=== PATIENT | female | born 1955 | race Caucasian/White ===

== ENCOUNTER 2016-07-03 06:44 | Inpatient (IN) | payer BC ==
[~2016-07-03] VITALS: Ht 175.3 cm; Wt 102.8 kg
[~2016-07-03 06:44] MED LIST: DILT180C96 PO; FRS/40 PO; GLC500 PO; LISI-725 PO; POTA10CA28 PO; SOTA120T6 PO; vitamin d3 liquid PO
[2016-07-03] MEDS ORDERED: DILTIAZEM HCL 5 MG/ML 5 ML VIAL IV STA (07:07)
--- NOTE | 2016-07-03 07:12 | EMERGENCY ROOM VISIT NOTE ---
History Report prepared by Mariposa: Dario Mckay Under the Supervision of: Dr. Carrillo Chambers M.D. First contact with patient: 06:56 Chief Complaint: RAPID HEART RATE Stated Complaint: AFIB SINCE AROUND 4AM History of Present Illness The patient is a 61 year old female who presents to the Emergency Room with complaints of a persistent rapid heart rate since 0. The patient noticed the sensation when she got up to go to the bathroom. The patient has felt weak since the onset of her rapid heart rate. The patient had a similar sensation several years ago when she was diagnosed with atrial fibrillation. The patient was electrically cardioverted, and has since been in sinus rhythm. The patient is recovering from an illness with symptoms of fever, chills, and cough. She had similar symptoms prior to her first diagnosis of atrial fibrillation several years ago. The patient has been compliant with her prescriptions for Diltiazem 120 mg, Lisinopril 20 mg, and Sotalol 120 mg. Her medications have not changed recently other than the addition of Insulin. Source of History: patient Onset: 399 Position: other (heart) Quality: other (rapid rate) Timing: other (persistent) Associated Symptoms: + weakness Review of Systems All systems have been listed, reviewed, and are negative other than those previously mentioned. Please see Additional Medical History Sheet. 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 Family History Hypertension Social History Smoking Status: Former Smoker Alcohol Use: occasionally Drug Use: none Marital Status: Housing Status: lives with family Occupation Status: retired Current/Historical Medications Scheduled Ascorbic Acid (Vitamin C), 1,000 MG PO DAILY Diltiazem Hcl Ext Rel (Tiazac), 120 MG PO DAILY Fish Oil ([place]-3), 1 CAP PO DAILY Insulin Detemir (Levemir), 24-26 UNITS SQ HS Kelp (Kelp), 100 MG PO BID Lisinopril (Zestril), 20 MG PO DAILY Metformin HCL (Glucophage *), 1,000 MG PO BID Probiotic Product (Probiotic), 1 CAP PO DAILY Sotalol Hcl (Afib/Afl) (Sotalol Hcl (Af)), 120 MG PO BID Zinc Gluconate (Zinc Gluconate), 100 MG PO DAILY [vitamin d3 liquid], 10,000 UNIT(INT) PO DAILY Scheduled PRN Furosemide (Lasix), 40 MG PO 2XWK PRN for . Insulin Lispro 75/25 (Humalog Mix 75/25), 5-10 UNITS SC DAILY PRN for with meals Lorazepam (Ativan), 1 MG PO TID PRN for Anxiety/Agitation Potassium Chloride (Micro-K Ext Rel), 20 MEQ PO 2XWK PRN for . Miscellaneous Medications Magnesium Oxide (Mag-Ox), 400 MG PO Allergies Coded Allergies: Labetalol (Verified Allergy, Unknown, ., 05/13/16) Nitrofurantoin (Verified Allergy, Unknown, PER DR BAY, 05/13/16) Grain (Verified Adverse Reaction, Unknown, elevates her blood sugar and makes her depressed, 05/13/16) Wheat (Verified Adverse Reaction, Unknown, eleavtes blood sugar and makes her depressed, 05/13/16) Physical Exam Vital Signs Date Time Temp Pulse Resp B/P Pulse Ox O2 Delivery O2 Flow Rate FiO2 07/03/16 11:09 90 18 158/74 95 Room Air 07/03/16 09:00 101 20 114/96 94 Room Air 07/03/16 08:30 109 20 107/78 92 Room Air 07/03/16 07:33 117 20 115/84 92 Room Air 07/03/16 07:23 124 07/03/16 06:50 100 Room Air 07/03/16 06:45 36.6 94 20 184/91 95 Room Air Physical Exam GENERAL: Patient awake, alert, oriented x 3. Patient follows commands. Patient does not appear toxic. Patient is adequately hydrated and well- nourished. SKIN: No erythema, pallor, cyanosis or rash HEENT: Normal head, pupils equal, reactive to light and accommodation. LUNGS: Occasional faint wheezes noted, right greater than left. HEART: Rapid, irregularly irregular rhythm. No murmurs. No gallops. No rubs ABDOMEN: No masses, no rebound, no hepatomegaly or splenomegaly. Obese. EXTREMITIES: No signs of trauma. No pedal or pretibial edema. No calf or thigh tenderness. NEUROLOGIC: Cranial nerves II-XII within normal limits. No gross motor sensory function deficits. Medical Decision & Procedures ER Provider Diagnostic Interpretation: X ray results are stated below per my interpretation and the radiologist's interpretation. CHEST ONE VIEW PORTABLE CLINICAL HISTORY: Atrial fibrillation. COMPARISON STUDY: Chest radiograph June 27, 2013. FINDINGS: Lung volumes are normal. There is no pneumothorax or pleural effusion. Mild cardiomegaly is unchanged. There is no evidence of pulmonary edema. No consolidation is identified. IMPRESSION: 1. No acute cardiopulmonary findings. 2. Stable mild cardiomegaly. Electronically signed by: Ayden Duke M.D. 07/03/2016 8:08 AM Dictated Date/Time: 07/03/2016 8:07 AM Laboratory Results 07/03/16 07:02 07/03/16 07:02 Test 07/03/16 07:02 Red Blood Count 4.64 M/uL (4.2-5.4) Mean Corpuscular Volume 87.3 fL (80-100) Mean Corpuscular Hemoglobin 31.3 pg (25-34) Mean Corpuscular Hemoglobin Concent 35.8 g/dl (32-36) RDW Standard Deviation 42.5 fL (36.4-46.3) RDW Coefficient of Variation 13.3 % (11.5-14.5) Mean Platelet Volume 9.2 fL (7.4-10.4) Prothrombin Time 9.8 SECONDS (9.0-12.0) Prothromb Time International Ratio 0.9 (0.9-1.1) Activated Partial Thromboplast Time 26.8 SECONDS (21.0-31.0) Partial Thromboplastin Ratio 1.0 Anion Gap 15.0 mmol/L (3-11) Est Creatinine Clear Calc Drug Dose 105.2 ml/min Estimated GFR () 90.1 Estimated GFR (Non- 77.8 BUN/Creatinine Ratio 16.0 (10-20) Calcium Level 10.2 mg/dl (8.5-10.1) Total Bilirubin 0.5 mg/dl (0.2-1) Aspartate Amino Transf (AST/SGOT) 20 U/L (15-37) Alanine Aminotransferase (ALT/SGPT) 24 U/L (12-78) Alkaline Phosphatase 97 U/L (45-117) Troponin I < 0.015 ng/ml (0-0.045) Total Protein 7.5 gm/dl (6.4-8.2) Albumin 3.6 gm/dl (3.4-5.0) Globulin 3.9 gm/dl (2.5-4.0) Albumin/Globulin Ratio 0.9 (0.9-2) Thyroid Stimulating Hormone (TSH) 2.710 uIu/ml (0.300-4.500) Laboratory results as stated above per my review. Medications Administered Medications (Trade) Dose Ordered Sig/Lisa Route Start Time Stop Time Status Last Admin Dose Admin Diltiazem HCl (Cardizem Inj) 20 mg NOW STAT IV 07/03/16 07:07 07/03/16 07:11 DC 07/03/16 07:25 20 MG Diltiazem HCl (Cardizem Bolus / Drip) 1 ea NOW STAT IV 07/03/16 07:50 07/03/16 07:51 DC 07/03/16 08:25 1 EA ECG Indication: tachycardia Rate (beats per minute): 99 Rhythm: atrial fibrillation Findings: PVC (occasional), no acute ischemic change ED Course 0657: Past medical records reviewed. The patient was evaluated in room A3. A complete history and physical examination was performed. 0707: Cardizem 20 mg IV. 0750: Diltiazem Bolus/drip 1 ea IV. 0935: The patient's heart rate decreased considerably, but she remains in atrial fibrillation. 0954: Discussed the case with Dr. Umang Kumar, Community Arts Worker. He will see the patient in the ED. 1025: Dr. Kumar was in to see the patient. He recommends that medicine admit her to the hospital. 1033: Spoke with Janice Vargas PA-C, [facility] Hospitalist. The patient will be evaluated. Medical Decision I considered multiple diagnoses including atrial fibrillation, metabolic disorder, acute ischemia, pneumonia, bronchitis, URI. Patient is here now with atrial fibrillation with rapid ventricular response. Patient is on multiple medications. Multiple labs, EKG and imaging were obtained. Please see above. The patient was given high-dose diltiazem bolus 2 and then a diltiazem drip. This resulted in a slowing of her rate but without conversion to sinus rhythm. I discussed results with the patient and with Dr. Kumar. I also discussed care with the hospitalist. The patient may require cardioversion. In the meantime, the patient will require further evaluation in the hospital with close monitoring. Consults Time Called: 0950 Consulting Physician: Dr. Umang Kumar, Community Arts Worker Returned Call: [phone]: Discussed the case with Dr. Umang Kumar, Community Arts Worker. He will see the patient in the ED. Additional Consults: Time Called: 1030 Consulted Physician: Janice Vargas PA-C, [facility] Hospitalist Returned Call: [phone] Additional Comments: 1033: Spoke with Janice Vargas PA-C, [facility] Hospitalist. The patient will be evaluated. Impression Primary Impression: Atrial fibrillation with RVR Additional Impression: Bronchitis Critical Care I have personally spent greater than 35 minutes of critical care time in the direct management of this patient. This includes bedside care, interpretation of diagnostic studies, and testing, discussion with consultants, patient, and family members, and other required patient management activities. This 35 minutes is in excess of all separately billable procedures. Scribe Attestation The scribe's documentation has been prepared under my direction and personally reviewed by me in its entirety. I confirm that the note above accurately reflects all work, treatment, procedures, and medical decision making performed by me. Departure Information Dispostion Being Evaluated By Hospitalist Referrals Teodoro Haile MD (PCP) Patient Instructions A Signature Page, [facility] Problem Qualifiers
[2016-07-03 07:13] LABS: HEMATOCRIT 40.5 % (37-47); MEAN CELL VOLUME 87.3 fL (80-100); MEAN CORPUSCULAR HEMOGLOBIN 31.3 pg (25-34); MEAN CORPUSCULAR HGB CONC 35.8 g/dl (32-36); MEAN PLATELET VOLUME 9.2 fL (7.4-10.4); PLATELET COUNT 205 K/uL (130-400); RED BLOOD COUNT 4.64 M/uL (4.2-5.4)
[2016-07-03 07:24] LABS: INR 0.9 (0.9-1.1); PROTHROMBIN TIME (PATIENT) 9.8 SECONDS (9.0-12.0)
[2016-07-03 07:29] LABS: AST/SGOT 20 U/L (15-37); BLOOD UREA NITROGEN 13 mg/dl (7-18); CALCIUM 10.2 mg/dl (8.5-10.1); CARBON DIOXIDE 22 mmol/L (21-32); CHLORIDE 102 mmol/L (98-107); CREATININE 0.82 mg/dl (0.60-1.20); GLUCOSE 277 mg/dl (70-99); SODIUM 139 mmol/L (136-145)
[2016-07-03 07:39] LABS: ALB/GLOB RATIO 0.9 (0.9-2); ALKALINE PHOSPHATASE 97 U/L (45-117); ALT/SGPT 24 U/L (12-78)
[2016-07-03] MEDS ORDERED: DILTIAZEM BOLUS / DRIP IV STA ×2 (07:50→11:18)
[2016-07-03] MEDS ORDERED: HMLI7525 SC (07:57)
[2016-07-03] MEDS ORDERED: MAGN400T6 PO (07:57)
[2016-07-03] MEDS ORDERED: LVMI SQ (07:57)
[2016-07-03] MEDS ORDERED: LORA-741 PO ×2 (07:57)
[2016-07-03] MEDS ORDERED: DILT120C68 PO (07:57)
[2016-07-03] MEDS ORDERED: DILTIAZEM HCL INJ 125 MG in DEXTROSE 5% 100ML IV PRN (08:00)
--- NOTE | 2016-07-03 08:10 | DIAGNOSTIC IMAGING REPORT ---
CHEST ONE VIEW PORTABLE CLINICAL HISTORY: Atrial fibrillation. COMPARISON STUDY: Chest radiograph June 27, 2013. FINDINGS: Lung volumes are normal. There is no pneumothorax or pleural effusion. Mild cardiomegaly is unchanged. There is no evidence of pulmonary edema. No consolidation is identified. IMPRESSION: 1. No acute cardiopulmonary findings. 2. Stable mild cardiomegaly. Electronically signed by: Ayden Duke M.D. 07/03/2016 8:08 AM Dictated Date/Time: 07/03/2016 8:07 AM
--- NOTE | 2016-07-03 10:59 | CARDIOLOGY CONSULTATION ---
DATE OF CONSULTATION: 07/03/2016 REFERRING PHYSICIAN: [facility] tresa. REASON FOR CONSULTATION: Atrial fibrillation. HISTORY OF PRESENT ILLNESS: This is a 61-year-old female who is usually followed by Dr. Robbie Canela through the [facility]. The patient has a history of paroxysmal atrial fibrillation, but has been in a sinus rhythm for over 2 years. She takes diltiazem and sotalol. Her had problems while on Coumadin and she has refused any type of anticoagulation. She was in her normal state of health until the past several days, she has had a cold. She has had a cough with chills and symptoms of viremia. This morning about 4:00 a.m., she noted her heart to be in atrial fibrillation with a rapid heart rate. She presented to the Emergency Department where she was given intravenous diltiazem, which has slowed her heart rate down, but she is in persistent atrial fibrillation. She has no chest pain or shortness of breath. She denies dizziness or lightheadedness. ALLERGIES: LABETALOL, MACROBID, AND WHEAT. PAST MEDICAL HISTORY: As outlined above, the patient has a history of paroxysmal atrial fibrillation. She is also a type 2 diabetic with a history of obesity, hypertension, hyperlipidemia and asthmatic lung disease. SOCIAL HISTORY: She is a nonsmoker. She is a . FAMILY MEDICAL HISTORY: Noncontributory. REVIEW OF SYSTEMS: A 10-point review of systems is negative except for the history of chief complaint. PHYSICAL EXAMINATION: GENERAL: She is alert and oriented, no acute distress. VITAL SIGNS: Blood pressure is 115/100 and pulse is regular at 100. She is afebrile. HEENT: She is normocephalic. Pupils are equal and reactive to light. Extraocular muscles are intact bilaterally. NECK: The neck veins are flat. Carotids have good upstrokes bilaterally without bruits. Thyroid is nonpalpable. RESPIRATORY: Breath sounds equal bilaterally and clear to auscultation. CARDIOVASCULAR: Heart has an irregular rhythm. There are no cardiac rubs or murmurs. GASTROINTESTINAL: Abdomen is soft and nontender without organomegaly. EXTREMITIES: Free of edema, digit clubbing, or cyanosis. NEUROLOGIC: Grossly intact. SKIN: Warm to touch. LYMPH NODES: Negative to palpation. LABORATORY DATA: INR is 0.9. Creatinine is 0.8 and potassium is 4.0. Hemoglobin is 14.5. EKG reveals atrial fibrillation without acute changes that would suggest ischemia. IMPRESSION: 1. Persistent atrial fibrillation. 2. Type 2 diabetes. 3. History of hypertension and dyslipidemia. 4. Obesity. RECOMMENDATIONS: The patient will remain on a diltiazem drip for rate control. She is very reluctant regarding anticoagulation; however, I have discussed the option of short term until we are able to cardiovert her back to normal sinus rhythm. We will start her on intravenous heparin. I would continue the sotalol. If she does not spontaneously convert to normal sinus rhythm, then we may have to do an early cardioversion utilizing a JASMIN to clear her. MERRICK
[2016-07-03 11:15] VITALS: O2SAT 95; BMI 42.0
[2016-07-03] MEDS ORDERED: ONDANSETRON INJ 2 MG/ML 2 ML VIAL IV PRN (11:15)
[2016-07-03] MEDS ORDERED: ACETAMINOPHEN 325 MG TAB PO PRN (11:15)
[2016-07-03] MEDS ORDERED: NITROGLYCERIN 0.4 MG SL PER TAB CHARGE SL PRN (11:15)
[2016-07-03] MEDS ORDERED: ASCO10003 PO (11:29)
[2016-07-03] MEDS ORDERED: MISCCAP80 PO (11:29)
[2016-07-03] MEDS ORDERED: OMEG10007 PO (11:29)
[2016-07-03] MEDS ORDERED: ATV/1 PO (11:29)
[2016-07-03] MEDS ORDERED: ZINC100T3 PO (11:29)
[2016-07-03] MEDS ORDERED: KELP100T PO (11:29)
[2016-07-03] MEDS ORDERED: POTASSIUM CHLORIDE 10 MEQ TABCR PO PRN (11:30)
[2016-07-03] MEDS ORDERED: GLUCOSE 40% GEL 15 GM TUBE PO PRN (11:30)
[2016-07-03] MEDS ORDERED: GLUCOSE 10 TABS/TUBE PO PRN (11:30)
[2016-07-03] MEDS ORDERED: GLUCAGON FOR INJ 1 MG VIAL SQ PRN (11:30)
[2016-07-03] MEDS ORDERED: DEXTROSE 50% 50 ML SYR IV PRN (11:30)
[2016-07-03] MEDS ORDERED: FUROSEMIDE 40 MG TAB PO PRN (11:30)
[2016-07-03] MEDS ORDERED: HEPARIN SOD 5000 UNIT/0.5 ML CARP ONE (11:41)
[2016-07-03] MEDS ORDERED: HEPARIN 25000 UNIT/500 ML D5W ONE ×2 (11:41→11:47)
[2016-07-03 12:41] VITALS: BP 134/84; PULSE 116; O2SAT 96
[2016-07-03] MEDS: DILTIAZEM HCL INJ 125 MG in DEXTROSE 5% 100ML IV PRN ×2 (12:52→23:04)
[2016-07-03] MEDS: HEPARIN 25,000 UNIT/500ML D5W 500 ML IV PRN ×2 (12:54→20:45)
[2016-07-03 12:55] VITALS: BP 145/72; PULSE 107; O2SAT 96
[2016-07-03] MEDS: INSULIN ASPART 100 UNITS/ML 3 ML PEN SC SCH ×3 (13:04→20:30)
[2016-07-03 13:07] VITALS: BP 138/81; PULSE 121
--- NOTE | 2016-07-03 13:46 | History and Physical ---
History & Physical Date & Time of Service: Jul 03, 2016 at 13:24 Chief Complaint: atrial fibrillation with rvr Primary Care Physician: Teodoro Haile MD History of Present Illness Source: patient This is a 61 y/o female with PMHx of PAF not on anticoagulation, DM 2, Diastolic CHF on lasix PRN, HTN and other problems as outlined below who presents to the ED c/o persistent rapid heart rate since early this morning. Pt reports that when she woke up around 0400 to use the bathroom she noticed a rapid heart rate ~110. Sxs were assoc with mild lightheadedness. Patient has a history of PAF and feels that these sxs reflect those she feels when she goes into Afib. She reports she has never spontaneously converted to sinus rhythm and has required 2 cardioversions (2006 and 2013). She is currently on diltiazem and Sotalol and has been taking her medication as prescribed. She has not been on anticoagulation for the past 2 years. She follows with cardiology, Dr. Canela. Patient is recovering from bronchitis. Pt denies fever/chills, chest pain, syncope, SOB, abd pain, N/V, bowel or bladder issues, LE edema or calf pain. In the ED, pt is tachy in 115-125. EKG + Afib with RVR. Pt received diltiazem bolus followed by a drip. She remained in Afib and will be admitted for further evaluation and treatment. Past Medical/Surgical History Medical Problems: (1) AF (atrial fibrillation) Status: Resolved (2) Anxiety Status: Chronic (3) Benign hypertension Status: Chronic (4) Diabetes mellitus type 2 Status: Chronic (5) Diastolic heart failure Status: Chronic (6) Dyslipidemia Status: Chronic (7) ESOPHAGUS DISORDERS NEC Status: Chronic (8) Iron deficiency anemia Status: Resolved Family History Hypertension Social History Smoking Status: Former Smoker (7 pack year history; quit 2011) Alcohol Use: occasionally Drug Use: none Marital Status: Housing status: lives alone Occupational Status: retired Immunizations History of Influenza Vaccine: No History of Tetanus Vaccine?: unsure History of Pneumococcal: refuses History of Hepatitis B Vaccine: No Multi-Drug Resistant Organisms History of MDRO: No Allergies Coded Allergies: Labetalol (Verified Allergy, Unknown, ., 05/13/16) Nitrofurantoin (Verified Allergy, Unknown, PER DR BAY, 05/13/16) Grain (Verified Adverse Reaction, Unknown, elevates her blood sugar and makes her depressed, 05/13/16) Wheat (Verified Adverse Reaction, Unknown, eleavtes blood sugar and makes her depressed, 05/13/16) Home Medications Scheduled Ascorbic Acid (Vitamin C), 1,000 MG PO DAILY Diltiazem Hcl Ext Rel (Tiazac), 120 MG PO DAILY Fish Oil ([place]-3), 1 CAP PO DAILY Insulin Detemir (Levemir), 24-26 UNITS SQ HS Kelp (Kelp), 100 MG PO BID Lisinopril (Zestril), 20 MG PO DAILY Metformin HCL (Glucophage *), 1,000 MG PO BID Probiotic Product (Probiotic), 1 CAP PO DAILY Sotalol Hcl (Afib/Afl) (Sotalol Hcl (Af)), 120 MG PO BID Zinc Gluconate (Zinc Gluconate), 100 MG PO DAILY [vitamin d3 liquid], 10,000 UNIT(INT) PO DAILY Scheduled PRN Furosemide (Lasix), 40 MG PO 2XWK PRN for . Insulin Lispro 75/25 (Humalog Mix 75/25), 5-10 UNITS SC DAILY PRN for with meals Lorazepam (Ativan), 1 MG PO TID PRN for Anxiety/Agitation Potassium Chloride (Micro-K Ext Rel), 20 MEQ PO 2XWK PRN for . Miscellaneous Medications Magnesium Oxide (Mag-Ox), 400 MG PO Review of Systems Constitutional: + weakness, No chills, No fatigue, No fever, No sweats Eyes: No worsening of vision Respiratory: No cough, No shortness of breath, No sputum Cardiovascular: + palpitations, No chest pain, No claudication, No edema Abdomen: No GI bleeding, No constipation, No diarrhea, No nausea, No pain, No vomiting Musculoskeletal: No calf pain, No swelling Genitourinary - Female: No dysuria Neurologic: No weakness Psychiatric: No depression symptoms Endocrine: No fatigue Hematologic / Lymphatic: No abnormal bleeding/bruising Integumentary: No new/changing skin lesions Physical Exam Vital Signs Date Time Temp Pulse Resp B/P Pulse Ox O2 Delivery O2 Flow Rate FiO2 07/03/16 13:07 121 16 138/81 Room Air 07/03/16 12:55 107 16 145/72 96 Room Air 07/03/16 12:41 116 16 134/84 96 Room Air 07/03/16 12:16 94 20 109/96 92 07/03/16 12:00 94 20 109/96 92 Room Air 07/03/16 11:15 95 Room Air 07/03/16 11:09 90 18 158/74 95 Room Air 07/03/16 09:00 101 20 114/96 94 Room Air 07/03/16 08:30 109 20 107/78 92 Room Air 07/03/16 07:33 117 20 115/84 92 Room Air 07/03/16 07:23 124 07/03/16 06:50 100 Room Air 07/03/16 06:45 36.6 94 20 184/91 95 Room Air General Appearance: WD/WN, no apparent distress, + obese, + pertinent finding ( Pt is laying comfortably in bed ) Head: normocephalic, atraumatic Eyes: normal inspection ENT: hearing grossly normal Neck: supple Respiratory/Chest: chest non-tender, lungs clear, normal breath sounds, no respiratory distress Cardiovascular: no edema, no murmur, + tachycardia, + irregularly irregular Abdomen/GI: normal bowel sounds, non tender, soft Back: normal inspection Extremities/Musculoskelatal: normal inspection, no calf tenderness, no pedal edema Neurologic/Psych: alert, normal mood/affect, oriented x 3 Skin: normal color, warm/dry Diagnostics Laboratory Results Results Past 24 Hours Test 07/03/16 07:02 Range/Units White Blood Count 7.10 4.8-10.8 K/uL Red Blood Count 4.64 4.2-5.4 M/uL Hemoglobin 14.5 12.0-16.0 g/dL Hematocrit 40.5 37-47 % Mean Corpuscular Volume 87.3 80-100 fL Mean Corpuscular Hemoglobin 31.3 25-34 pg Mean Corpuscular Hemoglobin Concent 35.8 32-36 g/dl RDW Standard Deviation 42.5 36.4-46.3 fL RDW Coefficient of Variation 13.3 11.5-14.5 % Platelet Count 205 130-400 K/uL Mean Platelet Volume 9.2 7.4-10.4 fL Prothrombin Time 9.8 9.0-12.0 SECONDS Prothromb Time International Ratio 0.9 0.9-1.1 Activated Partial Thromboplast Time 26.8 21.0-31.0 SECONDS Partial Thromboplastin Ratio 1.0 Sodium Level 139 136-145 mmol/L Potassium Level 4.0 3.5-5.1 mmol/L Chloride Level 102 98-107 mmol/L Carbon Dioxide Level 22 21-32 mmol/L Anion Gap 15.0 3-11 mmol/L Blood Urea Nitrogen 13 7-18 mg/dl Creatinine 0.82 0.60-1.20 mg/dl Est Creatinine Clear Calc Drug Dose 105.2 ml/min Estimated GFR () 90.1 Estimated GFR (Non- 77.8 BUN/Creatinine Ratio 16.0 10-20 Random Glucose 277 70-99 mg/dl Calcium Level 10.2 8.5-10.1 mg/dl Total Bilirubin 0.5 0.2-1 mg/dl Aspartate Amino Transf (AST/SGOT) 20 15-37 U/L Alanine Aminotransferase (ALT/SGPT) 24 12-78 U/L Alkaline Phosphatase 97 45-117 U/L Troponin I < 0.015 0-0.045 ng/ml Total Protein 7.5 6.4-8.2 gm/dl Albumin 3.6 3.4-5.0 gm/dl Globulin 3.9 2.5-4.0 gm/dl Albumin/Globulin Ratio 0.9 0.9-2 Thyroid Stimulating Hormone (TSH) 2.710 0.300-4.500 uIu/ml Diagnostic Radiology CXR IMPRESSION: 1. No acute cardiopulmonary findings. 2. Stable mild cardiomegaly. Impression Assessment and Plan AFIB WITH RVR pt presents with palpitations assoc with lightheadedness; prior h/o Afib on sotalol and diltiazem; not on anticoagulation -admit to telemetry -pt with history of PAF; episode may have been triggered by recent URI illness -EKG: Afib with RVR -TSH WNL -cont sotalol and diltiazem drip -start heparin drip and Coumadin -obtain echo -patient may require cardioversion -consult cardio, Dr. Kumar-appreciate input -monitor UNCONTROLLED DM 2 ON INSULIN -recent HgB A1C 11.3; repeat in AM -hold Metformin and Humalog -reduce Levemir to 12 units HS while in hospital -start ISS -monitor BSG AC HS DIASTOLIC CHF -patient does not appear fluid overloaded -CXR no effusions -echo 2013 normal structure and function -cont BB and Lasix PRN HTN -BP stable -cont lisinopril and sotalol -monitor DVT PROPHYLAXIS -heparin drip CODE STATUS -FULL CODE status per discussion with patient upon admission DISPO -Pt seen in collaboration with Dr. Weiss. Please see his addendum for further details. Thanks! -Of note: patient will be followed by Dr. Parks starting tomorrow AM. ATTENDING NOTE Patient seen & examined at bedside. Reviewed above History/Physical and confirmed all the findings in person. Patient started to experience palpitations and light-headedness earlier in the morning today. Found to to be A.Fib with RVR in ED. Has been given Cardizem bolus and started on Cardizem drip. Started I/V Heparin. Dr. Kumar has been involved in patient care. Continue Sotalol. may need cardioversion. Patient is being admitted to Telemetry. Patient is FULL CODE. DVT Prophylaxis with I/V Heparin. Patient will be followed by Dr. Parks in AM. Luke Weiss MD Level of Care Telemetry Advanced Directives Existing Advance Directive: No Existing Living Will: No Existing Power of [employer] Hcm Developer: No Resuscitation Status FULL RESUSCITATION VTE Prophylaxis VTE Risk Assessment Done? Y/N: Yes Risk Level: High Given or contraindicated: Unfractionated heparin SQ
[2016-07-03 16:18] VITALS: BP 135/73; PULSE 108; TEMP 36.7; O2SAT 93
[2016-07-03] MEDS: WARFARIN SOD 10 MG TAB PO SCH (17:08)
[2016-07-03 19:36] LABS: PARTIAL THROMBOPLASTIN RATIO 1.9
[2016-07-03 19:48] VITALS: BP 133/94; PULSE 105; TEMP 36.5; O2SAT 95
--- NOTE | 2016-07-03 19:54 | ECHOCARDIOGRAM REPORT ---
*NOTICE TO RECEIVING [employer] AGENCY This information is strictly Confidential and protected under [place] law. [place] law prohibits you from making any further disclosure of this information unless further disclosure is expressly permitted by the written consent of the person to whom it pertains or is authorized by law. A general authorization for the release of medical or other information is not sufficient for this purpose. Hospital accepts no responsibility if the information is made available to any other person, INCLUDING THE PATIENT. Interpretation Summary * Name: NICOLLE SALINAS Study Date: 07/03/2016 04:34 PM BP: 138/81 mmHg * Patient Location: [facility] HR: 121 * : 1955 (M/d/yyyy) Gender: Female Height: 69 in * Age: 61 yrs Ethnicity: [place] Weight: 284 lb * Ordering Physician: Janice Chowdhury PA-C * Performed By: Lea Brown RDCS * * Reason For Study: Atrial Fibrillation * BSA: 2.4 m2 * The study was technically limited. * Grossly normal valvular structure and function. * -- Conclusions -- * The left ventricle is grossly normal size. * Ejection Fraction = 55-60%. * The right ventricular systolic function is normal. * The left atrium is moderately dilated. * The right atrium is moderately dilated. * The thickening of interatrial septum suggests lipomatous hypertrophy. Procedure Details * A complete two-dimensional transthoracic echocardiogram was performed (2D, M-mode, Doppler and color flow Doppler). * The study was technically difficult. * Due to suspicious atrial septum, Definity not utilized per protocol. Left Ventricle * The left ventricle is grossly normal size. * Ejection Fraction = 55-60%. Right Ventricle * The right ventricle is grossly normal size. * The right ventricular systolic function is normal. Atria * The left atrium is moderately dilated. * The right atrium is moderately dilated. * The thickening of interatrial septum suggests lipomatous hypertrophy. Mitral Valve * The mitral valve is not well visualized. * Significant mitral regurgitation is absent. Tricuspid Valve * The tricuspid valve is not well visualized. * Significant tricuspid regurgitation is absent. Aortic Valve * The aortic valve is not well visualized. * No hemodynamically significant valvular aortic stenosis. * There is no significant aortic regurgitation. Pulmonic Valve * The pulmonic valve is not well visualized. Pericardium/Pleural * There is no pericardial effusion. MMode 2D Measurements and Calculations IVSd 1.3 cm IVSs 1.8 cm LVIDd 4.6 cm LVIDs 3.4 cm LVPWd 1.6 cm LVPWs 1.8 cm IVS/LVPW 0.83 FS 26.2 % EDV(Teich) 96.8 ml ESV(Teich) 47.0 ml EF(Teich) 51.5 % EDV(cubed) 96.6 ml ESV(cubed) 38.8 ml EF(cubed) 59.8 % % IVS thick 38.2 % % LVPW thick 12.6 % LV mass(C)d 268.3 grams LV mass(C)dI 111.9 grams/m\S\2 LV mass(C)s 250.8 grams LV mass(C)sI 104.6 grams/m\S\2 SV(Teich) 49.8 ml SI(Teich) 20.8 ml/m\S\2 SV(cubed) 57.8 ml SI(cubed) 24.1 ml/m\S\2 Ao root diam 3.4 cm Ao root area 8.9 cm\S\2 ACS 2.3 cm LA dimension 4.1 cm LA/Ao 1.2 LVAd ap4 25.8 cm\S\2 LVLd ap4 7.5 cm EDV(MOD-sp4) 76.7 ml EDV(sp4-el) 74.9 ml LVAs ap4 15.7 cm\S\2 LVLs ap4 6.6 cm ESV(MOD-sp4) 33.3 ml ESV(sp4-el) 31.8 ml EF(MOD-sp4) 56.6 % EF(sp4-el) 57.5 % LVAd ap2 30.8 cm\S\2 LVLd ap2 8.1 cm EDV(MOD-sp2) 95.2 ml EDV(sp2-el) 99.1 ml LVAs ap2 20.6 cm\S\2 LVLs ap2 7.6 cm ESV(MOD-sp2) 49.5 ml ESV(sp2-el) 47.6 ml EF(MOD-sp2) 48.0 % EF(sp2-el) 51.9 % LVLd %diff 7.0 % EDV(MOD-bp) 87.7 ml LVLs %diff 12.5 % ESV(MOD-bp) 42.9 ml EF(MOD-bp) 51.1 % SV(MOD-sp4) 43.4 ml SI(MOD-sp4) 18.1 ml/m\S\2 SV(MOD-sp2) 45.7 ml SI(MOD-sp2) 19.1 ml/m\S\2 SV(MOD-bp) 44.8 ml SI(MOD-bp) 18.7 ml/m\S\2 SV(sp4-el) 43.1 ml SI(sp4-el) 18.0 ml/m\S\2 SV(sp2-el) 51.4 ml SI(sp2-el) 21.5 ml/m\S\2 Doppler Measurements and Calculations Ao V2 max 131.0 cm/sec Ao max PG 6.9 mmHg Ao max PG (full) 4.1 mmHg LV V1 max PG 2.7 mmHg LV V1 max 82.3 cm/sec PA V2 max 89.7 cm/sec PA max PG 3.2 mmHg
[2016-07-03] MEDS: SOTALOL HCL 80 MG TAB PO SCH (20:28)
[2016-07-03] MEDS ORDERED: INSULIN DETEMIR FLEXPEN/FLEX TOUCH 100 UNITS/ML 3ML SC SCH (21:00)
[2016-07-03] MEDS: LORAZEPAM 1 MG TAB PO PRN (22:00)
[2016-07-03] MEDS ORDERED: HYDROCODONE/HOMATROPINE SYRUP 5MG/1.5MG 5ML UDP PO PRN (23:45)
[2016-07-04] VITALS (10 sets, daily range): BP systolic 108–139; BP diastolic 65–93; PULSE 74–105; TEMP 35.5–37; O2SAT 93–98; Ht 175.3 cm; Wt 102.8 kg
[2016-07-04] MEDS: INSULIN ASPART 100 UNITS/ML 3 ML PEN SC SCH ×4 (07:00→20:59)
[2016-07-04] MEDS ORDERED: FENTANYL CITRATE INJ 50 MCG/1 ML 2 ML VIAL ONE (07:03)
[2016-07-04 07:16] LABS: HEMATOCRIT 42.2 % (37-47); MEAN CORPUSCULAR HEMOGLOBIN 30.5 pg (25-34); MEAN CORPUSCULAR HGB CONC 35.1 g/dl (32-36); MEAN PLATELET VOLUME 9.2 fL (7.4-10.4); PLATELET COUNT 238 K/uL (130-400); RED BLOOD COUNT 4.85 M/uL (4.2-5.4); WHITE BLOOD COUNT 8.51 K/uL (4.8-10.8)
[2016-07-04 07:35] LABS: INR 1.1 (0.9-1.1); PARTIAL THROMBOPLASTIN RATIO 1.9; PROTHROMBIN TIME (PATIENT) 11.7 SECONDS (9.0-12.0)
[2016-07-04] MEDS ORDERED: MIDAZOLAM HCL 1 MG/ML 2ML VIAL ONE (07:54)
[2016-07-04 07:57] LABS: BUN/CREATININE RATIO 14.9 (10-20); CALCIUM 9.3 mg/dl (8.5-10.1); CREATININE 0.76 mg/dl (0.60-1.20); POTASSIUM 3.9 mmol/L (3.5-5.1)
[2016-07-04] MEDS ORDERED: PROPOFOL IV EMULSION 10 MG/ML 20 ML VIAL IV ONE (08:16)
[2016-07-04] MEDS ORDERED: KETAMINE HCL INJ 50 MG/ML 10 ML VIAL ONE (08:16)
[2016-07-04 08:19] LABS: ESTIMATED AVERAGE GLUCOSE 189 mg/dl; HA1C FLAG Normal (Normal)
--- NOTE | 2016-07-04 08:20 | Anesthesiology Progress Note ---
Anesthesia Post Op Note Date & Time Jul 04, 2016 at 08:19 Vital Signs Pain Intensity: 9.0 Vital Signs Past 12 Hours Date Time Temp Pulse Resp B/P Pulse Ox O2 Delivery O2 Flow Rate FiO2 07/04/16 08:00 36.7 74 18 123/65 98 07/04/16 05:36 35.5 92 20 139/93 93 Room Air 07/04/16 04:18 35.5 92 20 139/93 93 Room Air 07/04/16 04:00 Room Air 07/04/16 00:38 36.7 86 18 134/81 95 07/03/16 23:59 Room Air Notes Mental Status: alert / awake / arousable, participated in evaluation Pt Amnestic to Procedure: Yes Nausea / Vomiting: adequately controlled Pain: adequately controlled Airway Patency, RR, SpO2: stable & adequate BP & HR: stable & adequate Hydration State: stable & adequate Anesthetic Complications: no major complications apparent
[2016-07-04] MEDS ORDERED: EpHEDrine SULFATE INJ 50 MG/ML AMP IV PRN (08:30)
[2016-07-04] MEDS ORDERED: ATROPINE SULFATE 0.1 MG/ML 5ML SYR IV PRN (08:30)
[2016-07-04] MEDS ORDERED: ZINC GLUCONATE 100 MG PO SCH (09:00)
[2016-07-04] MEDS ORDERED: NON-FORMULARY MEDICATION (Probiotic Product (Probiotic) 1 CAP) PO SCH (09:00)
[2016-07-04] MEDS ORDERED: DILTIAZEM HCL 60 MG TAB PO ONE (11:45)
--- NOTE | 2016-07-04 11:58 | PROGRESS NOTE ---
DATE: 07/04/2016 FOLLOWUP VISIT SUBJECTIVE: The patient is a 61-year-old diabetic with a history of obesity, hypertension and dyslipidemia. She has a history of paroxysmal atrial fibrillation and had been in sinus rhythm for over 2 years. She presented with atrial fibrillation and RVR after she developed a cold. Her rate has been controlled with intravenous diltiazem. This morning, we tried to perform a JASMIN cardioversion; however, the JASMIN revealed evidence of small thrombus in the left atrial appendage. Cardioversion was not completed. The plan now is to fully anticoagulate her with Coumadin and control her heart rate. She will then be brought back in as an outpatient for elective cardioversion in several weeks. OBJECTIVE: GENERAL: She is alert and oriented. VITAL SIGNS: Blood pressure 110/80 and pulse is regular at 90. She is afebrile. HEENT: She is normocephalic. Pupils are equal and reactive to light. Extraocular muscles are intact bilaterally. NECK: The neck veins are flat. Carotids have good upstrokes bilaterally without bruits. Thyroid is nonpalpable. RESPIRATORY: Breath sounds equal bilaterally and clear to auscultation. CARDIOVASCULAR: Heart has an irregular rhythm. Normal S1 and S2. No S3 or S4. GASTROINTESTINAL: Abdomen is soft and nontender without organomegaly. EXTREMITIES: Free of edema, digit clubbing, or cyanosis. NEUROLOGIC: Grossly intact. SKIN: Warm to touch. LYMPH NODES: Negative to palpation. LABORATORY DATA: INR is 1.1. IMPRESSION: 1. Persistent atrial fibrillation. 2. Diabetes. 3. Obesity. 4. Hypertension and dyslipidemia. RECOMMENDATIONS: As outlined above, the patient will be loaded with warfarin. She should remain on heparin until the INR is therapeutic. We will then plan discharge with outpatient followup and future elective cardioversion once the patient has been on warfarin for several weeks.
[2016-07-04] MEDS: LISINOPRIL 20 MG TAB PO SCH (12:30)
[2016-07-04] MEDS: SOTALOL HCL 80 MG TAB PO SCH ×2 (12:31→20:56)
[2016-07-04] MEDS: ASCORBIC ACID 500 MG TAB PO SCH (12:32)
[2016-07-04] MEDS: OMEGA-3 (PURIFIED FISH OIL) 1 GM CAP PO SCH (12:32)
[2016-07-04] MEDS: MAGNESIUM OXIDE 400 MG TAB PO SCH (12:32)
--- NOTE | 2016-07-04 13:41 | TEE ---
*NOTICE TO RECEIVING [employer] AGENCY This information is strictly Confidential and protected under [place] law. [place] law prohibits you from making any further disclosure of this information unless further disclosure is expressly permitted by the written consent of the person to whom it pertains or is authorized by law. A general authorization for the release of medical or other information is not sufficient for this purpose. Hospital accepts no responsibility if the information is made available to any other person, INCLUDING THE PATIENT. Interpretation Summary * Name: NICOLLE SALINAS Study Date: 07/04/2016 07:25 AM BP: 158/102 mmHg * Patient Location: C.2T\S\E222\S\1 HR: 129 * : 1955 (M/d/yyyy) Gender: Female Height: 69 in * Age: 61 yrs Ethnicity: [place] Weight: 284 lb * Ordering Physician: Umang Kumar * Referring Physician: Self, Referred * Performed By: Kody Salvador RCS * * Reason For Study: A-FIB, Eval for CSOE * BSA: 2.4 m2 * -- Conclusions -- * A mass is seen in the left atrial appendage that is suggestive of a left atrial thrombus. Procedure Details * JASMIN Probe #1 utilized for procedure. * The study was performed in Cardiac Catheterization Lab. * Time out was conducted by the physician, nurse, and surveying or spatial science technician with positive identification of patient and procedure. * Informed consent for Transesophageal Echocardiogram was obtained prior to the procedure. * An intravenous line was placed. A topical anesthetic agent was used for oropharangeal anesthesia. A bite block was inserted. * Sedation performed by the anesthesia department. * The patient's vital signs, including blood pressure, heart rate, pulse oximetry and cardiac rhythm were monitored throughout the procedure . * A multifrequency, multiplane transesopheageal echocardiographic endoscope was inserted and manipulated in the standard fashion to achieve multiplane views. * The transesophageal probe was passed without difficulty. * The patient tolerated the procedure well without evidence of orophangeal or esophageal trauma. * A 2D transesophageal echocardiogram was performed. * A 2D transesophageal echocardiogram with color flow Doppler was performed. Left Ventricle * The left ventricle is normal in size. * There is normal left ventricular wall thickness. * Left ventricular systolic function is normal. * The left ventricular wall motion is normal. Atria * The left atrial size is normal. * A mass is seen in the left atrial appendage that is suggestive of a left atrial thrombus. * Right atrial size is normal. * The interatrial septum is intact with no evidence for an atrial septal defect. * There is no Doppler evidence for an atrial septal defect. * Lipomatous hypertrophy of the interatrial septum is noted. Mitral Valve * The mitral valve is normal in structure and function. Tricuspid Valve * The tricuspid valve is normal in structure and function. Aortic Valve * The aortic valve is normal in structure and function. Pulmonic Valve * The pulmonic valve is not well visualized. * There is no significant pulmonary regurgitation. Great Vessels * The aortic root and proximal ascending aorta are normal sized. Pericardium * There is no pericardial effusion.
--- NOTE | 2016-07-04 13:55 | Progress Note ---
Medicine Progress Note Date & Time of Visit: Jul 04, 2016 at 13:35. Subjective 61 yo F awoke yesterday morning from sleep with palpitations/atrial fibrillation. She was admitted to the hospital yesterday for afib with RVR after JASMIN located a small thrombus in the SURINDER--requires heparin bridge to coumadin for anticoagulation. -patient in weepy and states that she is starving. -she has many diet requests, however, has not been able to eat what she has been given so far -she denies any chest pain, shortness of breath, nausea, vomiting, diarrhea, nasal or sinus congestion, ear fullness or ear pain, cough, fevers, or chills today -she does notice that her heart rate is high and states that this feels uncomfortable for her as her heart rate is typically in the 60s. -she was recently on a cruise and when she got back, she and two other family members became sick with URI symptoms. This was 10 days ago. -she did not see a doctor for a diagnosis and treated herself with essential oils and colloidal silver. -she is feeling better now. Objective Last 8 Hrs Date Time Temp Pulse Resp B/P Pulse Ox O2 Delivery O2 Flow Rate FiO2 07/04/16 11:57 93 Room Air 07/04/16 11:22 36.8 88 18 108/79 93 07/04/16 09:05 Room Air 07/04/16 08:38 97 18 161/98 93 Room Air 07/04/16 08:28 97 18 153/101 93 Room Air 07/04/16 08:18 105 18 143/79 92 Room Air 07/04/16 08:00 36.7 74 18 123/65 98 07/04/16 05:36 35.5 92 20 139/93 93 Room Air Physical Exam: GEN: obese, in emotional distress, alert and appropriate HEENT: NC/AT, PERRL, normal sclerae, pharynx non-acute NECK: minimal bilateral submandibular LAD CARDIO: reg rate, irreg rhythm, S1/2 heard without m/g/r LUNGS: CTA bilaterally, no crackles, rales or wheezes, good diaphragmatic excursion ABD: soft, non-tender, non-distended, no rebound or guarding, +BS EXTREMITY: no LE swelling or edema, extremities are warm and well-perfused NEURO: CN 2-12 grossly intact, mentating well MUSC: moves all extremities equally, no gross focal deficits. SKIN: warm and dry Laboratory Results: Last 24 Hours Test 07/03/16 16:13 07/03/16 19:00 07/03/16 20:08 07/04/16 06:46 Bedside Glucose 201 mg/dl 198 mg/dl 240 mg/dl Activated Partial Thromboplast Time 50.4 SECONDS Partial Thromboplastin Ratio 1.9 Test 07/04/16 07:05 07/04/16 10:59 White Blood Count 8.51 K/uL Red Blood Count 4.85 M/uL Hemoglobin 14.8 g/dL Hematocrit 42.2 % Mean Corpuscular Volume 87.0 fL Mean Corpuscular Hemoglobin 30.5 pg Mean Corpuscular Hemoglobin Concent 35.1 g/dl RDW Standard Deviation 42.1 fL RDW Coefficient of Variation 13.2 % Platelet Count 238 K/uL Mean Platelet Volume 9.2 fL Prothrombin Time 11.7 SECONDS Prothromb Time International Ratio 1.1 Activated Partial Thromboplast Time 49.2 SECONDS Partial Thromboplastin Ratio 1.9 Sodium Level 137 mmol/L Potassium Level 3.9 mmol/L Chloride Level 102 mmol/L Carbon Dioxide Level 25 mmol/L Anion Gap 10.0 mmol/L Blood Urea Nitrogen 11 mg/dl Creatinine 0.76 mg/dl Est Creatinine Clear Calc Drug Dose 114.0 ml/min Estimated GFR () 98.8 Estimated GFR (Non- 85.3 BUN/Creatinine Ratio 14.9 Random Glucose 258 mg/dl Estimated Average Glucose 189 mg/dl Hemoglobin A1c 8.2 % Calcium Level 9.3 mg/dl Bedside Glucose 275 mg/dl Assessment & Plan 1. Afib with RVR-h/o PAF but in sinus for two years, takes sotalol and diltiazem as outpatient and is not on anticoagulation. Recent episode of RVR may have been triggered by URI. Pt also recently came home from a cruise 10 days ago. TSH was WNL and she was admitted to telemetry. S/p JASMIN this morning with clot seen in SURINDER. Cardioversion not performed and she was put on coumadin and heparin drip. Rate controlled with diltiazem drip but rate is till in the low 100s and patient is not feeling well at this rate. Dilt 60mg PO TID started. Sotalol continued at 120mg PO BID. Cardiology consulted--appreciate management of this. 2. URI-symptoms began 10 days ago, seem to have subsided, no testing done for a workup. Treated herself at home with essential oils and colloidal silver. 3. DMII-A1C 8.2 and she has a very specific diet--working with food staff to get her what she needs. Holding Metformin and Humalog. Consulted inpatient glycemic pharmacist for assistance with insulin dosing in house. 4. Chronic diastolic CHF-compensated, CXR no effusions or overload. Cont Lasix PRN 5. Hypertension-BP controlled. Cont lisinopril. DVT PROPHYLAXIS -heparin drip CODE STATUS -FULL CODE DISPO Cont on heparin bridge until anticoagulated with coumadin with goal INR 2-3. DO [facility] Hospitalist. Consultants: Cards Current Inpatient Medications: Current Inpatient Medications Medications (Trade) Dose Ordered Sig/Lisa Route Start Time Stop Time Status Last Admin Dose Admin Acetaminophen (Tylenol Tab) 650 mg Q4H PRN PO 07/03/16 11:15 08/02/16 11:14 07/03/16 16:26 650 MG Ondansetron HCl (Zofran Inj) 4 mg Q6H PRN IV 07/03/16 11:15 08/02/16 11:14 Nitroglycerin (Nitrostat Tab) 0.4 mg UD PRN SL 07/03/16 11:15 08/02/16 11:14 Insulin Aspart (novoLOG ASPART) SLIDING SCALE If C... ACHS SC 07/03/16 16:00 08/02/16 15:59 07/04/16 12:39 10 UNITS Glucose (Glucose 40% Gel) 15-30 GRAMS 15 GRAMS... UD PRN PO 07/03/16 11:30 08/02/16 11:29 Glucose (Glucose Chew Tab) 4-8 Tablets 4 Tabl... UD PRN PO 07/03/16 11:30 08/02/16 11:29 Dextrose (Dextrose 50% 50ML Syringe) 25-50ML OF 50% DW IV FOR... UD PRN IV 07/03/16 11:30 08/02/16 11:29 Glucagon (Glucagon Inj) 1 mg UD PRN SQ 07/03/16 11:30 08/02/16 11:29 Fish Oil ([place]-3 (Purified Fish Oil) Cap) 1 gm DAILY PO 07/04/16 09:00 08/03/16 08:59 07/04/16 12:32 1 GM Furosemide (Lasix tab) 40 mg DAILY PRN PO 07/03/16 11:30 08/02/16 11:29 Lisinopril (Zestril Tab) 20 mg DAILY PO 07/04/16 09:00 08/03/16 08:59 07/04/16 12:30 20 MG Lorazepam (Ativan Tab) 1 mg TID PRN PO 07/03/16 11:30 08/02/16 11:29 07/03/16 22:00 1 MG Magnesium Oxide (Mag-Ox Tab) 400 mg DAILY PO 07/04/16 09:00 08/03/16 08:59 07/04/16 12:32 400 MG Potassium Chloride (Klor-Con M10) 20 meq DAILY PRN PO 07/03/16 11:30 08/02/16 11:29 Ascorbic Acid (Vitamin C Tab) 1,000 mg DAILY PO 07/04/16 09:00 08/03/16 08:59 07/04/16 12:32 1,000 MG Insulin Detemir (Levemir Flexpen/ FlexTouch) 12 unit HS SC 07/03/16 21:00 08/02/16 20:59 07/03/16 22:01 12 UNIT Sotalol HCl 120 mg 120 mg BID PO 07/03/16 21:00 08/02/16 20:59 07/04/16 12:31 120 MG Heparin Sodium/ Dextrose (Heparin 25,000 Unit/500ml D5W) 500 ml @ 33 mls/hr [id number] PRN IV 07/03/16 12:30 08/02/16 12:29 07/03/16 20:45 33 MLS/HR Warfarin Sodium (Coumadin Tab) 10 mg DAILY@16 PO 07/03/16 16:00 08/02/16 15:59 07/03/16 17:08 10 MG Hydrocodone Bit/ Homatropine Methylb (Hycodan Syrup) 5 ml Q6H PRN PO 07/03/16 23:45 1/26/17 23:44 Diltiazem HCl (Cardizem Tab) 60 mg TID PO 07/04/16 14:00 08/03/16 13:59
[2016-07-04] MEDS ORDERED: PHARMACY GLYCEMIC MGMT CONSULT PRN (14:34)
--- NOTE | 2016-07-04 14:55 | Pharmacy Progress Note ---
Glycemic Control Intl Consult Date of Service Jul 04, 2016. Scope Glycemic Pharmacist consulted by Dr Parks on 07/04/2016 for glycemic control and to write orders per [facility] inpatient glycemic control protocol Objective Weight (Kilograms): 129.900 Accuchecks BSG (last 24hrs): Test 07/03/16 16:13 07/03/16 20:08 07/04/16 06:46 07/04/16 07:05 Bedside Glucose 201 mg/dl (70-90) 198 mg/dl (70-90) 240 mg/dl (70-90) Random Glucose 258 mg/dl (70-99) Test 07/04/16 10:59 Bedside Glucose 275 mg/dl (70-90) Laboratory Data (last 24hrs) Test 07/04/16 07:05 Anion Gap 10.0 mmol/L BUN/Creatinine Ratio 14.9 Blood Urea Nitrogen 11 mg/dl Creatinine 0.76 mg/dl Hemoglobin A1c 8.2 % Potassium Level 3.9 mmol/L Sodium Level 137 mmol/L White Blood Count 8.51 K/uL HbA1c Test 07/04/16 07:05 Hemoglobin A1c 8.2 %(4.5-5.6) H Recent Pertinent Medications Outpatient Anti-diabetic Regimen: * Levemir 24 units SQ q PM * Humalog 7 units SQ TID with meals * Metformin 1000mg PO BID with meals * A1c = 8.2 % 07/04/16 The patient is currently receiving: * Basal insulin: Levemir 12 units every 24 hours * Correctional Insulin: Novolog Correction per scale ACHS Goal Range: Low 120 mg/dL - High 160 mg/dL Correction Factor: 12 mg/dL/unit * Prandial insulin: Per carb ratio of 1 unit per 34 grams CHO consumed Risk Factors for Insulin Resistance: * Steroids: none * Infection: none * Pressors: none * IVF: heparin infusion (mixed in dextrose) * Recent Surgery: n/a * Diet: NPO --> T2DM (sugar free, gluten free) Assessment & Plan ASSESSMENT: * ADA & AACE recommend a goal blood sugar range 140-180 mg/dl for the majority of critically ill & non-critically ill patients. However, more stringent targets may be selected in individual cases. 07/04/16 * 61 y/o known type 2 diabetic with hyperglycemia * currently, hyperglycemia likely due to heparin infusion (source of IV dextrose), reduced Levemir dose, and lack of metformin. * Diet being resumed today * will increase Levemir to ~80% of home dose * lower goal range for NovoLog to provide additional coverage AC and HS * NovoLog correction factor and carb ratio will be based on patient's home regime of ~45-50units of insulin per day * A1c is current * may benefit from tighter control as an outpatient PLAN FOR INPATIENT GLYCEMIC CONTROL: * Levemir 20 units SQ q PM * give tonight's dose with supper since Gabriella is currently hyperglycemic * half dose if BSG is below 100mg/dL * Continue NovoLog AC and HS * Correction factor: 30mg/dL/unit * Carb ratio: 1 unit per 10 g of CHO consumed * Goal range: 100-140mg/dL * Continue to hold metformin until PO intake is adequately established (usually resumed 24-48 hours prior to discharge) * A1c added to discharge instructions * Please note that the plan above was derived based on current level of insulin resistance and hospital stress. These recommendations are appropriate for inpatient admission only. Plan of care upon discharge will need to be reassessed to avoid potential outpatient hypo/hyperglycemia. Thank you.
[2016-07-04] MEDS ORDERED: INSU100I SQ (14:56)
[2016-07-04] MEDS: LORAZEPAM 1 MG TAB PO PRN ×2 (15:52→23:36)
[2016-07-04] MEDS: DILTIAZEM HCL 60 MG TAB PO SCH ×2 (15:52→20:56)
[2016-07-04] MEDS: WARFARIN SOD 10 MG TAB PO SCH (15:53)
[2016-07-04] MEDS: INSULIN DETEMIR FLEXPEN/FLEX TOUCH 100 UNITS/ML 3ML SC SCH ×2 (16:45→21:00)
[2016-07-04] MEDS: HEPARIN 25,000 UNIT/500ML D5W 500 ML IV PRN (20:18)
[2016-07-05 06:45] LABS: PARTIAL THROMBOPLASTIN RATIO 1.7; PROTHROMBIN TIME (PATIENT) 22.4 SECONDS (9.0-12.0)
[2016-07-05] MEDS ORDERED: HEPARIN IV BOLUS 4,000 UNIT in SYRINGE 0 ML IV STA (07:04)
[2016-07-05] MEDS: HEPARIN 25,000 UNIT/500ML D5W 500 ML IV PRN ×3 (07:04→22:21)
[2016-07-05 07:40] VITALS: BP 151/85; PULSE 107; TEMP 36.7; O2SAT 92
[2016-07-05] MEDS: OMEGA-3 (PURIFIED FISH OIL) 1 GM CAP PO SCH (07:44)
[2016-07-05] MEDS: ASCORBIC ACID 500 MG TAB PO SCH (07:45)
[2016-07-05] MEDS: DILTIAZEM HCL 60 MG TAB PO SCH ×4 (07:46→21:04)
[2016-07-05] MEDS: LISINOPRIL 20 MG TAB PO SCH (07:47)
[2016-07-05] MEDS: MAGNESIUM OXIDE 400 MG TAB PO SCH (07:47)
[2016-07-05] MEDS: SOTALOL HCL 80 MG TAB PO SCH ×2 (07:48→21:04)
[2016-07-05] MEDS: INSULIN ASPART 100 UNITS/ML 3 ML PEN SC SCH ×4 (08:10→21:07)
[2016-07-05 11:24] VITALS: BP 114/73; PULSE 96; TEMP 36.7; O2SAT 93
--- NOTE | 2016-07-05 11:28 | CARDIOLOGY PROGRESS NOTE ---
DATE: 07/05/2016 DATE: 07/05/2016. SUBJECTIVE: The patient is a 61-year-old female who was admitted with atrial fibrillation and RVR. Yesterday she underwent a transesophageal echocardiogram for early cardioversion, but had a small amount of thrombus in her left atrial appendage. The cardioversion was not completed and she is now waiting to be discharged once her warfarin is therapeutic. We switched her yesterday from intravenous diltiazem to oral. She has some high heart rates with her current doses of diltiazem and will increase it from 60 mg t.i.d. to 60 mg q.i.d. OBJECTIVE: GENERAL: She is alert and oriented in no acute distress. VITAL SIGNS: Blood pressure is 140/80, pulse is irregular at 105 beats per minute. She is afebrile. HEAD, EYES, EARS, NOSE, AND THROAT: She is normocephalic. She wears corrective lenses. Mucous membranes are moist. NECK: The neck veins are flat. Carotids have good upstrokes bilaterally without bruits. Thyroid is nonpalpable. RESPIRATORY: Breath sounds equal bilaterally and clear to auscultation. CARDIOVASCULAR: Heart has a regular rhythm. Normal S1, S2. No S3, S4. No cardiac rubs or murmurs. GASTROINTESTINAL: Abdomen is soft, nontender without organomegaly. EXTREMITIES: Free of edema, digit clubbing, or cyanosis. NEUROLOGIC: Grossly intact. SKIN: Warm to touch. LYMPH NODES: Negative to palpation. LABORATORY DATA: INR is 2.0 today. Hemoglobin is 14.8. IMPRESSION: 1. Persistent atrial fibrillation. 2. Diabetes mellitus. 3. Obesity. 4. Hypertension and dyslipidemia. RECOMMENDATIONS: Today, I will lower her warfarin from 10 mg daily to 5 mg daily. As outlined above I have increased her diltiazem to 60 mg q.i.d. We will check an INR again tomorrow, but if her heart rates are controlled and she is therapeutic with her warfarin we may consider discharge with outpatient followup and planned elective cardioversion in the future after she has been on anticoagulation for several weeks.
--- NOTE | 2016-07-05 12:41 | Pharmacy Progress Note ---
Glycemic Control: Progress Nt Date of Service Jul 05, 2016. Scope Glycemic Pharmacist consulted by Dr Parks on 07/04/16 for glycemic control and to write orders per [facility] inpatient glycemic control protocol. Objective Accuchecks BSG (last 24hrs): Test 07/04/16 16:21 07/04/16 20:22 07/05/16 06:11 07/05/16 11:31 Bedside Glucose 221 mg/dl (70-90) 184 mg/dl (70-90) 182 mg/dl (70-90) 242 mg/dl (70-90) HbA1c: Test 07/04/16 07:05 Hemoglobin A1c 8.2 %(4.5-5.6) H Recent Pertinent Medications Outpatient Anti-diabetic Regimen: * Levemir 24 units SQ q PM * Humalog 7 units SQ TID with meals * Metformin 1000mg PO BID with meals * A1c = 8.2 % 07/04/16 The patient is currently receiving: * Basal insulin: Levemir 20 units every 24 hours * Correctional Insulin: NovoLog Correction per scale ACHS Goal Range: Low 100 mg/dL - High 140 mg/dL Correction Factor: 30 mg/dL/unit * Prandial insulin: Per carb ratio of 1 unit per 10 grams CHO consumed * Oral medications: none at this time Risk Factors for Insulin Resistance: * Steroids: none * Infection: none * Pressors: none * IVF: heparin infusion (mixed in dextrose) * Recent Surgery: n/a * Diet: T2DM (sugar free, gluten free) - ate both breakfast and lunch per documentation Assessment & Plan ASSESSMENT: * ADA & AACE recommend a goal blood sugar range 140-180 mg/dl for the majority of critically ill & non-critically ill patients. However, more stringent targets may be selected in individual cases. 07/04/16 * 61 y/o known type 2 diabetic with hyperglycemia * currently, hyperglycemia likely due to heparin infusion (source of IV dextrose), reduced Levemir dose, and lack of metformin. * Diet being resumed today * will increase Levemir to ~80% of home dose * lower goal range for NovoLog to provide additional coverage AC and HS * NovoLog correction factor and carb ratio will be based on patient's home regime of ~45-50units of insulin per day * A1c is current * may benefit from tighter control as an outpatient 07/05/16 * BSG this AM improved compared to yesterday - Levemir not yet at steady state * continue same basal dose * pre-lunch elevated * tighten NovoLog parameters further * Patient tolerating PO intake well * add metformin back to inpatient regimen tomorrow AM with breakfast PLAN FOR INPATIENT GLYCEMIC CONTROL: * Levemir 20 units SQ q PM * half dose if BSG is below 100mg/dL * Continue NovoLog AC and HS * Correction factor: 25mg/dL/unit * Carb ratio: 1 unit per 8 g of CHO consumed * Goal range: 100-140mg/dL * Resume metformin 1000mg PO BID with meals on 07/06 with breakfast * A1c added to discharge instructions * Please note that the plan above was derived based on current level of insulin resistance and hospital stress. These recommendations are appropriate for inpatient admission only. Plan of care upon discharge will need to be reassessed to avoid potential outpatient hypo/hyperglycemia. Thank you.
[2016-07-05 14:46] LABS: PARTIAL THROMBOPLASTIN RATIO 3.1
[2016-07-05 15:36] VITALS: BP 121/82; PULSE 95; TEMP 36.5; O2SAT 93
[2016-07-05] MEDS: LORAZEPAM 1 MG TAB PO PRN ×2 (15:51→23:05)
[2016-07-05] MEDS ORDERED: WARFARIN SOD 5 MG TAB PO SCH (16:00)
--- NOTE | 2016-07-05 18:24 | Progress Note ---
Medicine Progress Note Date & Time of Visit: Jul 05, 2016 at 11:29. Subjective warfarin reduced to 5mg PO daily Cards adjusted CCB for better rate control asymptomatic overnight aside from some jaw pain from JASMIN yesterday. States the food is still not up to par. Denies chest pain, shortness of breath or other symptoms at this time. Objective Last 8 Hrs Date Time Temp Pulse Resp B/P Pulse Ox O2 Delivery O2 Flow Rate FiO2 07/05/16 11:24 36.7 96 20 114/73 93 Room Air 07/05/16 07:40 36.7 107 16 151/85 92 Room Air 07/05/16 04:00 Room Air Physical Exam: GEN: obese, no acute distress, alert and appropriate HEENT: NC/AT, normal sclerae, pharynx non-acute, jaw opens/closes without issue NECK: minimal bilateral submandibular LAD CARDIO: reg rate, irreg rhythm, S1/2 heard without m/g/r LUNGS: CTA bilaterally, no crackles, rales or wheezes, good diaphragmatic excursion ABD: soft, non-tender, non-distended, no rebound or guarding, +BS EXTREMITY: no LE swelling or edema, extremities are warm and well-perfused NEURO: CN 2-12 grossly intact, mentating well MUSC: moves all extremities equally, no gross focal deficits. SKIN: warm and dry Laboratory Results: Last 24 Hours Test 07/04/16 16:21 07/04/16 20:22 07/05/16 05:31 07/05/16 06:11 Bedside Glucose 221 mg/dl 184 mg/dl 182 mg/dl Prothrombin Time 22.4 SECONDS Prothromb Time International Ratio 2.0 Activated Partial Thromboplast Time 44.0 SECONDS Partial Thromboplastin Ratio 1.7 Assessment & Plan 61 yoF with paroxysmal atrial fibrillation on sotalol and dilt as outpatient presents with afib with RVR. On anticoagulation with rhythm and rate control strategies. 1. Afib with RVR-h/o PAF but in sinus for two years, takes sotalol and diltiazem as outpatient and is not on anticoagulation ( from coumadin-related complication and patient has refused it until now despite higher stroke risk). Recent episode of RVR may have been triggered by URI. Pt also recently came home from a cruise 10 days ago. TSH was WNL and she was admitted to telemetry. S/p JASMIN 07/04 with clot seen in SURINDER. Cardioversion not performed and she was put on coumadin and heparin drip. Rate controlled with diltiazem drip but rate is till in the low 100s and patient is not feeling well at this rate. Dilt 60mg PO TID started. Sotalol continued at 120mg PO BID. Cardiology consulted-- -->increased Dilt to 60mg PO QID -->INR 2.0 this morning, warfarin decreased to 5mg PO daily. -->plan for elective cardioversion as outpatient in several weeks. 2. URI-symptoms began 10 days ago, seem to have subsided, no testing done for a workup. Treated herself at home with essential oils and colloidal silver. 3. Acute jaw/neck pain-likely 2/2 manipulation during JASMIN yesterday morning. Supportive care. 4. DMII-A1C 8.2 and she has a very specific diet--working with food staff to get her what she needs. Holding Metformin and Humalog. Consulted inpatient glycemic pharmacist for assistance with insulin dosing in house. Glucose controlled at this time. 5. Chronic diastolic CHF-compensated, CXR no effusions or overload. Cont Lasix PRN 6. Hypertension-BP controlled. Cont lisinopril. DVT PROPHYLAXIS -heparin drip/warfarin CODE STATUS -FULL CODE DISPO Cont on heparin bridge until anticoagulated with coumadin with goal INR 2-3. Mei Parks DO [facility] Hospitalist. Consultants: Cards Current Inpatient Medications: Current Inpatient Medications Medications (Trade) Dose Ordered Sig/Lisa Route Start Time Stop Time Status Last Admin Dose Admin Acetaminophen (Tylenol Tab) 650 mg Q4H PRN PO 07/03/16 11:15 08/02/16 11:14 07/03/16 16:26 650 MG Ondansetron HCl (Zofran Inj) 4 mg Q6H PRN IV 07/03/16 11:15 08/02/16 11:14 Nitroglycerin (Nitrostat Tab) 0.4 mg UD PRN SL 07/03/16 11:15 08/02/16 11:14 Insulin Aspart (novoLOG ASPART) SLIDING SCALE If C... ACHS SC 07/03/16 16:00 08/02/16 15:59 07/05/16 08:10 4 UNITS Glucose (Glucose 40% Gel) 15-30 GRAMS 15 GRAMS... UD PRN PO 07/03/16 11:30 08/02/16 11:29 Glucose (Glucose Chew Tab) 4-8 Tablets 4 Tabl... UD PRN PO 07/03/16 11:30 08/02/16 11:29 Dextrose (Dextrose 50% 50ML Syringe) 25-50ML OF 50% DW IV FOR... UD PRN IV 07/03/16 11:30 08/02/16 11:29 Glucagon (Glucagon Inj) 1 mg UD PRN SQ 07/03/16 11:30 08/02/16 11:29 Fish Oil (Star-3 (Purified Fish Oil) Cap) 1 gm DAILY PO 07/04/16 09:00 08/03/16 08:59 07/04/16 12:32 1 GM Furosemide (Lasix tab) 40 mg DAILY PRN PO 07/03/16 11:30 08/02/16 11:29 Lisinopril (Zestril Tab) 20 mg DAILY PO 07/04/16 09:00 08/03/16 08:59 07/05/16 07:47 20 MG Lorazepam (Ativan Tab) 1 mg TID PRN PO 07/03/16 11:30 08/02/16 11:29 07/04/16 23:36 1 MG Magnesium Oxide (Mag-Ox Tab) 400 mg DAILY PO 07/04/16 09:00 08/03/16 08:59 07/05/16 07:47 400 MG Potassium Chloride (Klor-Con M10) 20 meq DAILY PRN PO 07/03/16 11:30 08/02/16 11:29 Ascorbic Acid (Vitamin C Tab) 1,000 mg DAILY PO 07/04/16 09:00 08/03/16 08:59 07/05/16 07:45 1,000 MG Sotalol HCl 120 mg 120 mg BID PO 07/03/16 21:00 08/02/16 20:59 07/05/16 07:48 120 MG Heparin Sodium/ Dextrose (Heparin 25,000 Unit/500ml D5W) 500 ml @ 37 mls/hr [id number] PRN IV 07/03/16 12:30 08/02/16 12:29 07/05/16 07:04 33 MLS/HR Hydrocodone Bit/ Homatropine Methylb (Hycodan Syrup) 5 ml Q6H PRN PO 07/03/16 23:45 07/17/16 23:44 Miscellaneous Information (Consult Glycemic Management Pharmacy) 1 ea UD PRN N/A 07/04/16 14:34 08/03/16 14:33 Insulin Detemir (Levemir Flexpen/ FlexTouch) 20 unit HS SC 07/04/16 16:45 08/03/16 16:44 07/04/16 21:00 20 UNIT Warfarin Sodium (Coumadin Tab) 5 mg DAILY@16 PO 07/05/16 16:00 08/04/16 15:59 UNV Diltiazem HCl (Cardizem Tab) 60 mg QID PO 07/05/16 13:00 08/04/16 12:59 UNV
[2016-07-05 20:02] VITALS: BP 119/85; PULSE 122; TEMP 36.7; O2SAT 93
[2016-07-05] MEDS: INSULIN DETEMIR FLEXPEN/FLEX TOUCH 100 UNITS/ML 3ML SC SCH (21:07)
[2016-07-05 22:10] LABS: PARTIAL THROMBOPLASTIN RATIO 3.1
[2016-07-06] VITALS: BP 127/89; PULSE 102; TEMP 36.5; O2SAT 95
[2016-07-06 03:56] VITALS: BP 115/71; PULSE 107; TEMP 36.8; O2SAT 94
[2016-07-06 05:01] LABS: INR 3.1 (0.9-1.1); PARTIAL THROMBOPLASTIN RATIO 2.7; PROTHROMBIN TIME (PATIENT) 34.5 SECONDS (9.0-12.0)
[2016-07-06 05:08] LABS: HEMATOCRIT 37.9 % (37-47); MEAN CELL VOLUME 87.7 fL (80-100); MEAN CORPUSCULAR HEMOGLOBIN 30.8 pg (25-34); MEAN CORPUSCULAR HGB CONC 35.1 g/dl (32-36); MEAN PLATELET VOLUME 9.3 fL (7.4-10.4); PLATELET COUNT 242 K/uL (130-400); RED BLOOD COUNT 4.32 M/uL (4.2-5.4); WHITE BLOOD COUNT 6.72 K/uL (4.8-10.8)
[2016-07-06] MEDS: HEPARIN 25,000 UNIT/500ML D5W 500 ML IV PRN (05:22)
[2016-07-06] MEDS ORDERED: METFORMIN HCL 500 MG TAB PO SCH (07:30)
[2016-07-06 07:43] VITALS: BP 139/86; PULSE 114; TEMP 36.7; O2SAT 94
[2016-07-06] MEDS: OMEGA-3 (PURIFIED FISH OIL) 1 GM CAP PO SCH (08:09)
[2016-07-06] MEDS: DILTIAZEM HCL 60 MG TAB PO SCH ×2 (08:10→12:11)
[2016-07-06] MEDS: ASCORBIC ACID 500 MG TAB PO SCH (08:11)
[2016-07-06] MEDS: LISINOPRIL 20 MG TAB PO SCH (08:11)
[2016-07-06] MEDS: MAGNESIUM OXIDE 400 MG TAB PO SCH (08:12)
[2016-07-06] MEDS: SOTALOL HCL 80 MG TAB PO SCH (08:12)
[2016-07-06] MEDS: INSULIN ASPART 100 UNITS/ML 3 ML PEN SC SCH ×2 (08:15→12:10)
--- NOTE | 2016-07-06 10:27 | Pharmacy Progress Note ---
Glycemic Control: Progress Nt Date of Service Jul 06, 2016. Scope Glycemic Pharmacist consulted by Dr Parks on 07/04/16 for glycemic control and to write orders per [facility] inpatient glycemic control protocol. Objective Accuchecks BSG (last 24hrs): Test 07/05/16 11:31 07/05/16 15:48 07/05/16 20:27 07/06/16 06:58 Bedside Glucose 242 mg/dl (70-90) 178 mg/dl (70-90) 170 mg/dl (70-90) 198 mg/dl (70-90) Laboratory Data (last 24hrs) Test 07/06/16 04:16 White Blood Count 6.72 K/uL HbA1c: Test 07/04/16 07:05 Hemoglobin A1c 8.2 % (4.5-5.6) H Recent Pertinent Medications Outpatient Anti-diabetic Regimen: * Levemir 24 units SQ q PM * Humalog 7 units SQ TID with meals * Metformin 1000mg PO BID with meals * A1c = 8.2 % 07/04/16 The patient is currently receiving: * Basal insulin: Levemir 20 units every 24 hours * Correctional Insulin: NovoLog Correction per scale ACHS Goal Range: Low 100 mg/dL - High 140 mg/dL Correction Factor: 25 mg/dL/unit * Prandial insulin: Per carb ratio of 1 unit per 8 grams CHO consumed * Oral medications: metformin 1000mg PO BID with meals Risk Factors for Insulin Resistance: * Steroids: none * Infection: none * Pressors: none * IVF: heparin infusion (mixed in dextrose) --> D/C'd today ~10:00 * Recent Surgery: n/a * Diet: T2DM (sugar free, gluten free) - ate well yesterday per documentation Assessment & Plan ASSESSMENT: * ADA & AACE recommend a goal blood sugar range 140-180 mg/dl for the majority of critically ill & non-critically ill patients. However, more stringent targets may be selected in individual cases. 07/04/16 * 61 y/o known type 2 diabetic with hyperglycemia * currently, hyperglycemia likely due to heparin infusion (source of IV dextrose), reduced Levemir dose, and lack of metformin. * Diet being resumed today * will increase Levemir to ~80% of home dose * lower goal range for NovoLog to provide additional coverage AC and HS * NovoLog correction factor and carb ratio will be based on patient's home regime of ~45-50units of insulin per day * A1c is current * may benefit from tighter control as an outpatient 07/05/16 * BSG this AM improved compared to yesterday - Levemir not yet at steady state * continue same basal dose * pre-lunch elevated * tighten NovoLog parameters further * Patient tolerating PO intake well * add metformin back to inpatient regimen tomorrow AM with breakfast 07/06/16 * Fasting BSG this AM again elevated and Levemir not yet back to home dosing * Increase Levemir to home dose * Heparin infusion stopped (was mixed in dextrose) * hopefully this will help with glycemic control * Metformin started this AM - continue PLAN FOR INPATIENT GLYCEMIC CONTROL: * Levemir 24 units SQ q PM * half dose if BSG is below 100mg/dL * Continue NovoLog AC and HS * Correction factor: 25mg/dL/unit * Carb ratio: 1 unit per 8 g of CHO consumed * Goal range: 100-140mg/dL * Resume metformin 1000mg PO BID with meals * A1c added to discharge instructions RECOMMENDATIONS FOR DISCHARGE: * Likely, the patient can continue home regimen with Levemir, Humalog, and metformin. * May benefit from tighter glycemic control but this can be titrated by an outpatient provider * Please note that the plan above was derived based on current level of insulin resistance and hospital stress. These recommendations are appropriate for inpatient admission only. Plan of care upon discharge will need to be reassessed to avoid potential outpatient hypo/hyperglycemia. Thank you.
[2016-07-06 10:57] LABS: PARTIAL THROMBOPLASTIN RATIO 2.3
[2016-07-06 11:22] VITALS: BP 138/86; PULSE 108; TEMP 36.6; O2SAT 94
--- NOTE | 2016-07-06 11:35 | CARDIOLOGY CONSULTATION ---
DATE OF CONSULTATION: 07/06/2016 SUBJECTIVE: The patient is a 61-year-old female who presented with atrial fibrillation and RVR. She has a history of paroxysmal atrial fibrillation and had been on sotalol. Unfortunately, in the past she has refused to be on anticoagulation. We performed a transesophageal echocardiogram this admission with the hope of early cardioversion. Unfortunately, the patient did show ultrasound evidence of possible thrombus in the left atrial appendage. She has now been on warfarin for several days and her INR today is 3.1. Heparin has been discontinued by the hospitalist. Yesterday I increased her diltiazem to 240 mg daily. Her heart rates seem to be better controlled. At this point, I would recommend that we discharge her to outpatient followup with anticipated cardioversion in several weeks. 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 Canela and a follow-up appointment is not available with him, then one of our PAs should be able to see her in short order. OBJECTIVE: GENERAL: She is alert and oriented in no acute distress. VITAL SIGNS: Blood pressure is 130/80, pulse is irregular at 100 beats per minute. She is afebrile. HEENT: She is normocephalic. Pupils are equal and reactive to light. Extraocular muscles are intact bilaterally. NECK: The neck veins are flat. Carotids have good upstrokes bilaterally without bruits. Thyroid is nonpalpable. RESPIRATORY: Breath sounds equal bilaterally and clear to auscultation. CARDIOVASCULAR: Heart has an irregular rhythm. Normal S1, S2, no S3, S4. No cardiac rubs or murmurs. GASTROINTESTINAL: Abdomen soft, nontender, without organomegaly. EXTREMITIES: Free of edema, digit clubbing, or cyanosis. NEUROLOGIC: Grossly intact. SKIN: Warm to touch. LYMPH NODES: Negative to palpation. IMPRESSION: 1. Persistent atrial fibrillation. 2. Diabetes mellitus. 3. Obesity. 4. Hypertension. 5. Dyslipidemia. RECOMMENDATIONS: As outlined above, the patient can be discharged today. I would hold her warfarin for today, but it can be restarted again at 5 mg daily tomorrow. She does have a follow-up appointment with the coag clinic on Thursday. We will make arrangements for her to see her primary coffee shop manager as an outpatient with anticipated cardioversion in several weeks. She does have diltiazem 120 mg extended release at home which she was taking as an outpatient. We can just double up on that prescription so that she is taking 240 mg of extended release after discharge. She should continue her present dose of sotalol which is 120 mg twice daily.
[2016-07-06] MEDS ORDERED: CMD5 PO (11:38)
[2016-07-06] MEDS ORDERED: DILT120C68 PO (11:38)
[2016-07-06 11:42] VITALS: BP 138/86; PULSE 108; TEMP 36.6; O2SAT 94
--- NOTE | 2016-07-06 11:55 | Discharge Instructions ---
Discharge Instructions Admission Reason for Admission: atrial fibrillation with rvr Discharge Discharge Diagnosis / Problem: atrial fibrillation with RVR, SURINDER thrombus Discharge Goals Goal(s): Prevent Disease Progression Activity Recommendations Activity Limitations: resume your previous activity . Instructions / Follow-Up Instructions / Follow-Up Please take all medications as instructed. Please note that your DILTIAZEM prescription has been changed for better heart rate control. You have been started on WARFARIN at 5mg every day for a goal INR 2-3. Your INR was 3.1 on 07/06. Please HOLD taking warfarin today 07/06 and restart 5mg daily tomorrow (07/07). You will need a non-fasting lab (PT/INR) drawn on ( 07/08) and you have been provided a prescription to get this done. Please try to get this drawn prior to PCP appointment. You have a follow-up appointment with Dr. Boogie Haile for , 07/08 @ 1030am for follow-up of this hospitalization. You will need follow-up with Cardiology within the next 2 weeks. Someone from their office should be contacting you to schedule after the weekend. You will need to be seen in the Anticoagulation Clinic for setup for managing of your warfarin. Someone from our staff will be contacting you after the weekend to set this up. It was a pleasure taking care of you! Call if you have any questions or problems. You can reach a [facility] hospitalist on duty at [facility] 24 hours a day by calling [phone]. Take care of yourself. Mei Parks DO [facility] Hospitalist Current Hospital Diet Patient's current hospital diet: Diabetes Type 2 Diet, Gluten Free Diet Discharge Diet Recommended Diet: Diabetes Type 2 Diet, Gluten Free Diet Procedures Procedures Performed: TTE-112 JASMIN-07/04 Pending Studies Studies pending at discharge: no Laboratory Results Hemoglobin A1c Test 07/04/16 07:05 Range/Units Estimated Average Glucose 189 mg/dl Hemoglobin A1c 8.2 H 4.5-5.6 % Medical Emergencies . Who to Call and When: Medical Emergencies: If at any time you feel your situation is an emergency, please call 911 immediately. . Non-Emergent Contact Non-Emergency issues call your: Primary Care Provider, Staff Midwife/Apprenticeship Director . . "Provider Documentation" section prepared by Mei Parks. VTE Core Measure Inpt VTE Proph given/why not?: Other Anticoagulation (heparin drip and warfarin )
[2016-07-06] MEDS ORDERED: HYCUDL5 PO (12:33)
[2016-07-06] MEDS ORDERED: INSULIN DETEMIR FLEXPEN/FLEX TOUCH 100 UNITS/ML 3ML SC SCH (21:00)
--- NOTE | 2016-07-11 11:04 | Discharge Summary ---
Discharge Summary Admission Date: Jul 03, 2016 at 11:11 Discharge Date: Jul 06, 2016 Discharge Disposition: Home Principal Diagnosis: 1. Persistent atrial fibrillation. 2. Diabetes mellitus II 3. Obesity. 4. Hypertension. 5. Dyslipidemia. Procedures: JASMIN TTE Vaccinations: None. Consultations: Cards Medication Reconciliation New Medications: Hydrocodone/Homatropine (Hydromet 5-1.5 mg/5Ml) 5 Ml/Cup Syrp 5 ML PO Q6H PRN for Cough for 5 Days, #1 BTL Warfarin Sod (Coumadin) 5 Mg Tab 5 MG PO DAILY@16 for 30 Days, #30 TAB Take once daily starting 07/07, and then only as directed by coumadin clinic. Changed Medications: Diltiazem Hcl Ext Rel (Tiazac) 120 Mg Capcr 120 MG PO BID for 30 Days, #60 CAP (Changed from: DAILY) Continued Medications: Ascorbic Acid (Vitamin C) 1,000 Mg Tab 1000 MG PO DAILY Fish Oil ([place]-3) 1 Ea Cap 1 CAP PO DAILY, CAP Furosemide (Lasix) 40 Mg Tab 40 MG PO 2XWK PRN for ., TAB Insulin Detemir (Levemir) 100 Units/Ml Inj 24-26 UNITS SQ HS Insulin Lispro (Human) (Humalog) 100 Unit/Ml Inj 7 UNITS SQ TIDM Kelp (Kelp) 100 Mg Tab 100 MG PO BID Lisinopril (Zestril) 20 Mg Tab 20 MG PO DAILY, TAB Lorazepam (Ativan) 1 Mg Tab 1 MG PO TID PRN for Anxiety/Agitation, TAB Magnesium Oxide (Mag-Ox) 400 Mg Tab 400 MG PO, TAB Metformin HCL (Glucophage *) 1,000 Mg Tab 1000 MG PO BID, 0 Refills Potassium Chloride (Micro-K Ext Rel) 10 Meq Capcr 20 MEQ PO 2XWK PRN for ., CAP TAKES WITH LASIX Probiotic Product (Probiotic) 1 Cap Cap 1 CAP PO DAILY Sotalol Hcl (Afib/Afl) (Sotalol Hcl (Af)) 120 Mg Tab 120 MG PO BID for 30 Days Zinc Gluconate (Zinc Gluconate) 100 Mg Tab 100 MG PO DAILY [vitamin d3 liquid] () 07683 UNIT(INT) PO DAILY Admission Information HPI (per Admitting provider): This is a 61 y/o female with PMHx of PAF not on anticoagulation, DM 2, Diastolic CHF on lasix PRN, HTN and other problems as outlined below who presents to the ED c/o persistent rapid heart rate since early this morning. Pt reports that when she woke up around 0400 to use the bathroom she noticed a rapid heart rate ~110. Sxs were assoc with mild lightheadedness. Patient has a history of PAF and feels that these sxs reflect those she feels when she goes into Afib. She reports she has never spontaneously converted to sinus rhythm and has required 2 cardioversions (2006 and 2013). She is currently on diltiazem and Sotalol and has been taking her medication as prescribed. She has not been on anticoagulation for the past 2 years. She follows with cardiology, Dr. Canela. Patient is recovering from bronchitis. Pt denies fever/chills, chest pain, syncope, SOB, abd pain, N/V, bowel or bladder issues, LE edema or calf pain. In the ED, pt is tachy in 115-125. EKG + Afib with RVR. Pt received diltiazem bolus followed by a drip. She remained in Afib and will be admitted for further evaluation and treatment. Physical Exam (per Admitting): General Appearance: WD/WN, no apparent distress, + obese, + pertinent finding (Pt is laying comfortably in bed ) Head: normocephalic, atraumatic Eyes: normal inspection ENT: hearing grossly normal Neck: supple Respiratory/Chest: chest non-tender, lungs clear, normal breath sounds, no respiratory distress Cardiovascular: no edema, no murmur, + tachycardia, + irregularly irregular Abdomen/GI: normal bowel sounds, non tender, soft Back: normal inspection Extremities/Musculoskelatal: normal inspection, no calf tenderness, no pedal edema Neurologic/Psych: alert, normal mood/affect, oriented x 3 Skin: normal color, warm/dry Hospital Course 61 yoF with paroxysmal atrial fibrillation on sotalol and dilt as outpatient presents with afib with RVR. On anticoagulation with rhythm and rate control strategies. 1. Afib with RVR-h/o PAF but in sinus for two years, takes sotalol and diltiazem as outpatient and is not on anticoagulation ( from coumadin-related complication and patient has refused it until now despite higher stroke risk). Recent episode of RVR may have been triggered by URI?. Pt also recently came home from a cruise 10 days ago. TSH was WNL and she was admitted to telemetry. S/p JASMIN 07/04 with clot seen in SURINDER. Cardioversion not performed and she was put on coumadin and heparin drip. Rate controlled with diltiazem drip but rate is till in the low 100s and patient is not feeling well at this rate. Dilt 60mg PO TID started. Sotalol continued at 120mg PO BID. Cardiology consulted-- -->increased Dilt to 60mg PO QID -->INR 2.0 this morning, warfarin decreased to 5mg PO daily. -->plan for elective cardioversion as outpatient in several weeks. 2. URI-symptoms began 10 days ago, seem to have subsided, no testing done for a workup. Treated herself at home with essential oils and colloidal silver. 3. Acute jaw/neck pain-likely 2/2 manipulation during JASMIN yesterday morning. Supportive care. rEsolved by time of discharge 4. DMII-A1C 8.2 and she has a very specific diet--working with food staff to get her what she needs. Holding Metformin and Humalog. Consulted inpatient glycemic pharmacist for assistance with insulin dosing in house. Glucose controlled at this time. Resumed home medications on discharge per med rec above 5. Chronic diastolic CHF-compensated, CXR no effusions or overload. Cont Lasix PRN 6. Hypertension-BP controlled. Cont lisinopril. 7. Obesity By day of discharge, her INR had been therapeutic for at least two days, and she was continued on the warfarin 5mg PO daily with close follow-up with the Anticoagulation Clinic and her PCP. She was tolerating PO and was stable with a heart rate in the low 100s consistently. Per Cardiology this was fine, and she should plan to follow-up as an outpatient within the next 2-4 weeks for titration of medications and elective cardioversion. Aside from tachycardia and her irregular rhythm which was expected, her physical exam at time of discharge was unremarkable. Total time spent on discharge = 60 minutes This includes examination of the patient, discharge planning, medication reconciliation, and communication with other providers. Discharge Instructions Discharge Instructions Admission Reason for Admission: atrial fibrillation with rvr Discharge Discharge Diagnosis / Problem: atrial fibrillation with RVR, SURINDER thrombus Discharge Goals Goal(s): Prevent Disease Progression Activity Recommendations Activity Limitations: resume your previous activity . Instructions / Follow-Up Instructions / Follow-Up Please take all medications as instructed. Please note that your DILTIAZEM prescription has been changed for better heart rate control. You have been started on WARFARIN at 5mg every day for a goal INR 2-3. Your INR was 3.1 on 07/06. Please HOLD taking warfarin today 07/06 and restart 5mg daily tomorrow (07/07). You will need a non-fasting lab (PT/INR) drawn on ( 07/08) and you have been provided a prescription to get this done. Please try to get this drawn prior to PCP appointment. You have a follow-up appointment with Dr. Boogie Haile for , 07/08 @ 1030am for follow-up of this hospitalization. You will need follow-up with Cardiology within the next 2 weeks. Someone from their office should be contacting you to schedule after the weekend. You will need to be seen in the Anticoagulation Clinic for setup for managing of your warfarin. Someone from our staff will be contacting you after the weekend to set this up. It was a pleasure taking care of you! Call if you have any questions or problems. You can reach a [facility] hospitalist on duty at [facility] 24 hours a day by calling [phone]. Take care of yourself. Mei Parks DO [facility] Hospitalist Additional Copies To Teodoro Haile MD
[2016-11-05] MEDS ORDERED: MAGN-22 PO (07:19)
[2016-11-05] MEDS ORDERED: DILT120C68 PO (07:19)
[2016-11-05] MEDS ORDERED: WARF-237 PO (07:19)
[2016-11-05] MEDS ORDERED: INSDGI SC (07:19)
[2016-11-05] MEDS ORDERED: CMD/25 PO (07:19)
== END 2016-07-06 13:04 | disposition home or self-care (01) | DRG 309 ==
LOC: ENRESERVDT → ENRESERVTM → C.EDB 06:45 → C.2T 11:11
PROVIDERS: ADMIT Emergency Medicine; ATTEND Hospitalist
PROC: B245ZZ4 Ultrasonography of Left Heart, Transesophageal (ICD-10-PCS; principal; 2016-07-04 07:45)
DX: I48.1 Persistent atrial fibrillation (principal); I50.32 Chronic diastolic (congestive) heart failure; I51.3 Intracardiac thrombosis, not elsewhere classified; J06.9 Acute upper respiratory infection, unspecified; R68.84 Jaw pain; M54.2 Cervicalgia; E11.65 Type 2 diabetes mellitus with hyperglycemia; I11.0 Hypertensive heart disease with heart failure; J45.909 Unspecified asthma, uncomplicated; F41.9 Anxiety disorder, unspecified; E66.9 Obesity, unspecified; Z68.33 Body mass index [BMI] 33.0-33.9, adult; Z87.891 Personal history of nicotine dependence; Z79.4 Long term (current) use of insulin; Z79.84 Long term (current) use of oral hypoglycemic drugs; Z79.899 Other long term (current) drug therapy

== ENCOUNTER → 2016-11-05 | Day surgery (SDC) | payer BC ==
[2016-11-05] VITALS (7 sets, daily range): BP systolic 109–144; BP diastolic 57–100; PULSE 50–100; TEMP 36.6; O2SAT 94–99; Ht 175.3 cm; Wt 129.5 kg
[~2016-11-05] VITALS: Ht 175.3 cm; Wt 129.5 kg
[~2016-11-05] MED LIST changes: +ASCO10003 PO; +ATV/1 PO; +CMD/25 PO; +CMD5 PO; +DILT120C68 PO; -DILT180C96 PO; +FENTANYL CITRATE INJ 50 MCG/1 ML 2 ML VIAL ONE; +HYCUDL5 PO; +INSDGI SC; +INSU100I SQ; +KELP100T PO; +LVMI SQ; +MAGN-22 PO; +MAGN400T6 PO; +MIDAZOLAM HCL 1 MG/ML 2ML VIAL ONE; +MISCCAP80 PO; +OMEG10007 PO; +WARF-237 PO; +ZINC100T3 PO
--- NOTE | 2016-11-05 08:24 | History & Physical Bridge Note ---
H&P Re-Evaluation Bridge Note: I have examined the patient, reviewed the History & Physical and in the interval since the performance of the History & Physical I have noted the following changes of clinical significance: No changes noted
--- NOTE | 2016-11-05 08:33 | Cardiology Procedure Brief Nt ---
Preliminary Cardiology Note Procedure Date November 05, 2016. 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
--- NOTE | 2016-11-05 08:34 | Procedure Note ---
Pre-Mod Sedation Assessment General Date of Moderate Sedation: November 05, 2016. Vital Signs: Vital Signs Past 12 Hours Date Time Temp Pulse Resp B/P Pulse Ox O2 Delivery O2 Flow Rate FiO2 11/05/16 08:09 100 16 144/100 99 Room Air 4 11/05/16 07:41 36.6 92 18 140/84 95 Room Air Review Cardiovascular: no gallop, no JVD, no murmur Lungs: lungs clear Pre-Sedation Airway Assessment Oral Cavity: Capped Teeth, WNL Able to Visualize Vocal Cords: No Short Thick Neck: No Hx of Sleep Apnea: Yes Smoking Status: Former Smoker Mallampati Classification: Class III ASA Classification: Class II Procedure Planning Contraindications-for Mod Sed: None Yes Notes The planned sedation has been discussed with the patient and consent obtained. I have identified the patient, determined the appropriateness of sedation and have assessed the patient immediately prior to the procedure. All medicine(s) and interventions are by my order.
--- NOTE | 2016-11-05 08:41 | Discharge Instructions ---
Discharge Instructions Procedure Procedure Date: November 05, 2016. Reason for Visit: Afib * To Do* W/O Anes. Discharge Discharge Date: November 05, 2016. Discharge Diagnosis: Successful synchronized electrical cardioversion Last Recorded Wt (Kilograms): 129.5 Anesthesia Post Anesthesia Instructions: If you have had General Anesthesia or IV Sedation: * Do not drive today. * Resume driving when surgeon permits. * Do not make important decisions or sign legal documents today. * Call surgeon for: 1. Temperature elevations greater than 101 degrees F. 2. Uncontrollable pain. 3. Excessive bleeding. 4. Persistent nausea and vomiting. 5. Medication intolerance (nausea, vomiting or rash). * For nausea and vomiting use only clear liquids such as: tea, soda, bouillon until nausea subsides, then gradually increase diet as tolerated. * If you have any concerns or questions, call your surgeon's office. If physician is unavailable and it is an emergency, call 911 or go to the nearest emergency room. Instructions Activity Recommendations: limitations as noted below Allergies: Coded Allergies: Labetalol (Verified Allergy, Unknown, ., 05/13/16) Nitrofurantoin (Verified Allergy, Unknown, PER DR BAY, 05/13/16) Grain (Verified Adverse Reaction, Unknown, elevates her blood sugar and makes her depressed, 05/13/16) Wheat (Verified Adverse Reaction, Unknown, eleavtes blood sugar and makes her depressed, 05/13/16) Provider Instructions ACTIVITY RECOMMENDATIONS: Resume activities as tolerated with no limitations unless specified. __ No lifting over __ pounds for 24 hours. __ Do not engage in vigorous exercise, sexual activity, or sports for 24 hours. __ Do not drive or operate any motorized equipment for 24 hours. __ You may return to work/school tomorrow. Follow Up Follow-up with: Dr Canela's office 2 weeks Rony Wilson Recommendations: Call your doctor if: * Temperature above 101 degrees * Pain not relieved by pain medicine ordered * There is increased drainage or redness from any incision * You have any unanswered questions or concerns. Your Doctors Instructions noted above were prepared by provider Robbie Canela. Patient Signature Section: Patient Instructions Signature Page Gabriella Sam Patient (or Guardian) Signature/Date: I have read and understand the instructions given to me by my caregivers. Caregiver/RN/Doctor Signature/Date: The above-named patient and/or guardian has received patient instructions on this date. + Original Patient Signature Page (only) stays with chart. Please make copy for patient.
--- NOTE | 2016-11-05 10:06 | CARDIOVERSION ---
DATE OF OPERATION: 11/05/2016 SYNCHRONIZED ELECTRICAL CARDIOVERSION REPORT INDICATIONS: Atrial fibrillation with rapid ventricular response, poorly controlled ventricular response rate. DESCRIPTION OF PROCEDURE: After procedure and risks were explained in detail to the patient and informed consent was obtained. The patient was then sedated with continuous heart rate, blood pressure and oxygen saturation monitoring as well as end tidal CO2 monitoring. Synchronized electrical cardioversion was then performed using biphasic synchronized counter shocks using 150 joules, 200 joules and 300 joules of ultimate synchronization and conversion to sinus rhythm. EKG done prior to this procedure demonstrates sinus bradycardia with low voltage QRS, rate of 49. Post procedure, the patient aroused having tolerated well. Arrangements were made for discharge to home. RECOMMENDATIONS: Continue medical management with discontinuation of diltiazem. Followup EKG in 2 weeks' time. SEDATION TIME: Start 08:09 and stop 08:21. Total sedation Fentanyl 125 mcg IV and Versed 12 mg IV. COMPLICATIONS: None. I attest to the content of the Intraoperative Record and any orders documented therein. Any exceptions are noted below. MTDD
== END | disposition home or self-care (01) ==
LOC: C.CATH 06:58
PROVIDERS: ATTEND Internal Medicine Cardiovascular Disease
DX: I48.91 Unspecified atrial fibrillation (principal); I10 Essential (primary) hypertension; E78.5 Hyperlipidemia, unspecified; J98.4 Other disorders of lung; Z79.01 Long term (current) use of anticoagulants

== ENCOUNTER → 2017-10-21 | Outpatient (CLI) | payer BC ==
[~2017-10-21] MED LIST changes: -DILT120C68 PO; -FENTANYL CITRATE INJ 50 MCG/1 ML 2 ML VIAL ONE; -GLC500 PO; -HYCUDL5 PO; -INSU100I SQ; -LVMI SQ; -MAGN400T6 PO; -MIDAZOLAM HCL 1 MG/ML 2ML VIAL ONE; -WARF-237 PO
== END | disposition home or self-care (01) ==
LOC: C.LABSPEC 17:32
PROVIDERS: ATTEND Obstetrics & Gynecology
DX: N94.9 Unspecified condition associated with female genital organs and menstrual cycle (principal)

== ENCOUNTER → 2017-10-21 | Outpatient (CLI) | payer BC | END | disposition home or self-care (01) | LOC: C.PAPS 18:07 | PROVIDERS: ATTEND Obstetrics & Gynecology | DX: Z01.419 Encounter for gynecological examination (general) (routine) without abnormal findings (principal) ==

== ENCOUNTER 2023-09-24 16:50 | Inpatient (IN) ==
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
[2023-09-24 18:28] LABS: Basophils # (auto) 0.07 K/uL (0.00-0.20); Basophils % (auto) 0.8 %; Eosinophils # (auto) 0.12 K/uL (0.00-0.50); Eosinophils % (auto) 1.3 %; Hematocrit (blood only) 44.1 % (37.0-47.0); Hemoglobin 14.8 g/dl (12.0-16.0); Immature Granulocytes # (auto) 0.09 K/uL (0.01-0.20); Lymphocytes # (auto) 1.29 K/uL (1.20-3.40); Lymphocytes % (auto) 14.3 %; Mean Corpuscular Hemoglobin 29.6 pg (25.0-34.0); Mean Corpuscular Hgb Conc 33.6 g/dL (32.0-36.0); Mean Corpuscular Volume 88.2 fL (80.0-100.0); Mean Platelet Volume 9.8 fL (9.4-12.4); Monocytes % (auto) 5.5 %; Neutrophils # (auto) 6.94 K/uL (1.40-6.50); Neutrophils % (auto) 77.1 %; Platelet Count 224 K/uL (130-400); RDW Coefficient of Variation 13.8 % (11.5-14.5); RDW Standard Deviation 44.4 fL (36.4-46.3); White Blood Count 9.01 K/ul (4.8-10.8)
[2023-09-24] MEDS: HYDROmorphone INJ 0.5 MG/0.5 ML SYR IV STA (18:34)
[2023-09-24 18:38] LABS: Albumin Level 4.5 gm/dl (3.4-5.0); Calcium 10.2 mg/dl (8.6-10.3); Potassium 4.3 mmol/L (3.5-5.1)
[2023-09-24 18:44] LABS: Albumin Globulin Ratio 1.3 (0.9-2); BUN Creatinine Ratio 42.7 (10-20); Creatinine Clr Calc Pharmacy 90.5 ml/min; Est GFR (African American) 95.6 ml/min; Est GFR (Non-African American) 82.5 ml/min; Globulin 3.4 gm/dl (2.5-4.0); Total Protein 7.9 gm/dl (6.0-8.3)
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
[2023-09-24] MEDS: OPTIRAY 320 100ml IV ONE (19:32)
[2023-09-24] MEDS: ONDANSETRON INJ 2 MG/ML 2 ML VIAL IV STA (19:45)
[2023-09-24] MEDS: ONDANSETRON INJ 2 MG/ML 2 ML VIAL ONE (19:45)
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
[2023-09-24] MEDS ORDERED: MoRPHine SULFATE 4 MG/ML 1 ML CARP\\VIAL IV PRN (21:01)
[2023-09-24] MEDS: METOPROLOL SUCC 50MG EXT REL TAB PO STA (21:13)
[2023-09-24] MEDS: ACETAMINOPHEN 1,000 MG/100 ML VIAL IV STA (21:45)
[2023-09-24 21:49] LABS: Base Excess VBG -0.8 mEq/L; HCO3 VBG 26 mmol/L; Oxygen Saturation VBG < 60.0 %; PCO2 VBG 52 mmHg (38-50); PO2 VBG 37 mmHg; pH VBG 7.31 (7.36-7.41)
[2023-09-24 21:55] LABS: Troponin I High Sensitivity 10.4 pg/ml (0-14)
[2023-09-24] MEDS: dilTIAZem HCL 180 MG CAPCR PO ONE (22:22)
[2023-09-24] MEDS: PROMETHAZINE HCL 12.5 MG in SODIUM CHLORIDE 0.9% 50 ML IV PRN (22:33)
[2023-09-24] MEDS ORDERED: LEVALBUTEROL 1.25MG/0.5ML NEB NEB STA (22:56)
[2023-09-24] MEDS ORDERED: CARBOHYDRATES FOR HYPOGLYCEMIA PO PRN (23:37)
[2023-09-24] MEDS ORDERED: DEXTROSE 50% 50 ML SYRINGE IV PRN (23:37)
[2023-09-24] MEDS ORDERED: GLUCOSE 10 TAB/TUBE PO PRN (23:37)
[2023-09-24] MEDS ORDERED: GLUCAGON FOR INJ 1 MG VIAL SQ PRN (23:37)
[2023-09-24] MEDS ORDERED: GLUCOSE 40% GEL 15 GM TUBE PO PRN (23:37)
[2023-09-24] MEDS: IPRATROPIUM BROMIDE NEB SOLN 0.02% 0.5MG/2.5ML VIAL INH STA (23:52)
[2023-09-25 00:01] LABS: Magnesium 1.9 mg/dl (1.7-2.4)
[2023-09-25] MEDS: LEVALBUTEROL 1.25 MG/3 ML NEB INH STA (00:11)
[2023-09-25] MEDS: AMPICILLIN/SULBACTAM SOD 3,000 MG in SODIUM CHLOR 0.9% MINI-B 100 ML IV STA (00:14)
[2023-09-25] MEDS: FUROSEMIDE INJ 20 MG/2 ML VIAL IV STA (00:14)
[2023-09-25] MEDS: LEVALBUTEROL 1.25 MG/3 ML NEB ONE (00:15)
[2023-09-25] MEDS: INSULIN ASPART PER UNIT CHARGE SC SCH (01:03)
[2023-09-25] MEDS: METOPROLOL TARTRATE 1 MG/ML VIAL IV STA ×3 (01:28→09:19)
[2023-09-25] MEDS: MAGNESIUM SULFATE / D5W 1 GM/100 ML BAG IV ONE (02:08)
[2023-09-25 02:17] LABS: Base Excess ABG -0.7 mEq/L (-9-1.8); HCO3 ABG 23 mmol/L (19-24); Oxygen Saturation ABG 97.3 % (90-95); PCO2 ABG 36 mmHg (35-46); PO2 ABG 112 mmHg (80-95); pH ABG 7.42 (7.35-7.45)
[2023-09-25 02:21] LABS: Allen Test Pos (Pos)
[2023-09-25 06:20] LABS: Basophils # (auto) 0.03 K/uL (0.00-0.20); Basophils % (auto) 0.3 %; Eosinophils # (auto) 0.01 K/uL (0.00-0.50); Eosinophils % (auto) 0.1 %; Hematocrit (blood only) 37.9 % (37.0-47.0); Hemoglobin 12.7 g/dl (12.0-16.0); Immature Granulocytes # (auto) 0.04 K/uL (0.01-0.20); Immature Granulocytes % (auto) 0.4 %; Lymphocytes # (auto) 1.13 K/uL (1.20-3.40); Lymphocytes % (auto) 10.8 %; Mean Corpuscular Hemoglobin 29.7 pg (25.0-34.0); Mean Corpuscular Hgb Conc 33.5 g/dL (32.0-36.0); Mean Corpuscular Volume 88.8 fL (80.0-100.0); Mean Platelet Volume 9.3 fL (9.4-12.4); Monocytes # (auto) 0.97 K/uL (0.11-0.59); Monocytes % (auto) 9.3 %; Neutrophils % (auto) 79.1 %; Platelet Count 165 K/uL (130-400); RDW Coefficient of Variation 13.8 % (11.5-14.5); RDW Standard Deviation 44.7 fL (36.4-46.3); Red Blood Count 4.27 M/uL (4.20-5.40); White Blood Count 10.48 K/ul (4.8-10.8)
[2023-09-25] MEDS: ACETAMINOPHEN 325 MG TAB PO PRN (06:32)
[2023-09-25 06:42] LABS: BUN Creatinine Ratio 37.3 (10-20); Creatinine Clr Calc Pharmacy 92.1 ml/min; Est GFR (African American) 95.6 ml/min; Est GFR (Non-African American) 82.5 ml/min; Potassium 4.2 mmol/L (3.5-5.1)
--- NOTE | 2023-09-25 07:27 | XRay Report ---
XR chest 1V portable CLINICAL HISTORY: Aspiration. COMPARISON STUDY: Chest radiograph and chest CT performed earlier today. FINDINGS: There is no pneumothorax. Small left and trace right pleural effusions. There are minimal b ibasilar opacities. Cardiomegaly is unchanged. There is pulmonary vascular congestion, similar to vernell or exam. IMPRESSION: 1. Cardiomegaly with pulmonary vascular congestion, similar to prior exam. 2. Small left and trace right pleural effusions. Mild bibasilar opacities favor atelectasis. An infec tious process could appear similar. ACT 112: Negative or not required by law. Electronically signed by: Ayden Duke M.D. 09/25/2023 7:25 AM
[2023-09-25] MEDS: PROMETHAZINE 12.5 MG/50.5 ML NSS IV ONE (07:29)
[2023-09-25] MEDS: oxyCODONE HCL IR 5 MG TAB (IMMEDIATE RELEASE) PO PRN (07:29)
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
[2023-09-25] MEDS: METOPROLOL SUCC 50MG EXT REL TAB PO SCH (08:27)
[2023-09-25] MEDS: LOSARTAN POTASSIUM 25 MG TAB PO SCH (08:27)
[2023-09-25] MEDS: AMOXICILLIN/CLAVULANATE 875 MG TAB PO SCH (08:29)
[2023-09-25] MEDS: LANTUS PER UNIT CHARGE SQ SCH (09:14)
[2023-09-25] MEDS: FUROSEMIDE 40 MG/4 ML VIAL IV ONE (09:19)
[2023-09-25] MEDS: POTASSIUM CHLORIDE CRTAB 20 MEQ TABCR PO STA (09:19)
[2023-09-25] MEDS: amLODIPine BESYLATE 5 MG TAB PO SCH (09:45)
[2023-09-25 10:31] LABS: Thyroid Stimulating Hormone 1.702 uIu/ml (0.300-4.500)
--- OUTSIDE RECORDS SUMMARY | 2023-09-25 11:12 | External Medical Summary | Summary of Care ---
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 Phone Teodoro Haile MD Primary Care Provider + Reason for Visit * Reason Comments eRx-Medication Refill Encounter Details Date Type Department Care Team (Late st Contact Info) Description 08/29/2023 Refill Cardiology, [facility] [address] [facility] [place] [phone] Kassie Canela MD [address] [facility] [place] [phone] HTN, goal below 140/90; Permanent atrial fibrillation (HCC); Hyperglycemia Allergies Active Allergy Reactions Criticality Noted Date Comments Adhesive Tape Medium 11/11/2018 Other reaction(s): SKIN IRRITATION Labetalol 07/06/2012 Drug intolerance, bradycardia and hypotension [facility] Nitrofurantoin Monohydrate Macrocrystals 11/25/2006 hives Nickel Low 11/11/2018 Other reaction(s): "TURNS MY SKIN GREEN" Wheat Bran 04/20/2017 Wheat and all grains documented as of this encounter (statuses as of 08/31/2023) Medications Medication Sig Dispensed Refills Start Date End Date Status NATURAL SUPPLEMENT Vitamin D/Vitamin K drops 0 03/24/2016 Active Kelp 150 MCG TABSIndications:P t unsure of dose. Take 1 Tablet by mouth every evening. 0 Active Ubiquinol 50 MG Oral Capsule Take by mouth 50 mg daily . 0 Active Zinc 15 MG CAPS Take by mouth 1 Capsule 2 times a day . 0 02/25/2018 Active Vitamin C 500 MG Oral Tablet Take 1 Tablet by mouth in the morning and 1 Tablet before bedtime. 0 Active Glutathione 50 MG Oral Tablet Take 250 mg by mouth daily. 0 Active NATURAL SUPPLEMENT Circulation and Vein Support - one tablet twice daily 0 Active NATURAL SUPPLEMENT Take 250 mg by mouth 2 times a day. Berberine 0 Active Potassium Chloride Georgina ER 10 MEQ Oral Tablet Extended Release (Klor-Con M10)Indications:P ermanent atrial fibrillation (HCC),HTN, goal below 140/90 Take 1 Tab by mouth daily. 90 Tab 3 04/22/2021 Active Additional Information Patient taking differently:10 mEq Oral Daily(AM),When taking the furosemide, Reported on 07/11/2022 Magnesium Malate 1250 (141.7 Mg) MG Oral Tablet Take 2 Tablets by mouth in the morning and 2 Tablets in the evening. 0 Active Potassium Citrate Powder Use as directed. 2 tsp daily 0 Active Furosemide 40 MG Oral Tablet (Lasix)Indication s:HTN, goal below 140/90,Chronic fatigue Take 1/2 Two to three days per week 50 Tablet 3 05/06/2022 Active Losartan Potassium 25 MG Oral Tablet (Cozaar)Indicatio ns:HTN, goal below 140/90 Take 2 Tablets by mouth in the morning. 180 Tablet 3 06/29/2023 Active Metoprolol Succinate ER 100 MG Oral Tablet Extended Release 24 Hour (toPROL XL)Indications:Pa roxysmal atrial fibrillation (HCC) TAKE 1 TABLET BY MOUTH IN THE MORNING AND BEFORE BEDTIME 180 Tablet 3 06/30/2023 Active LORazepam 0.5 MG Oral Tablet (Ativan)Indicatio ns:Anxiety Take 1 Tablet by mouth 2 times a day as needed for Anxiety. 60 Tablet 2 07/29/2023 Active dilTIAZem HCl ER Beads 180 MG Oral Capsule Extended Release 24 HourIndications:H TN, goal below 140/90,Permanent atrial fibrillation (HCC),Hyperglycem ia TAKE 1 CAPSULE BY MOUTH EVERY DAY (MUST BE NDC: [address]-81) 90 Capsule 3 08/31/2023 Active dilTIAZem HCl ER Beads 180 MG Oral Capsule Extended Release 24 HourIndications:H TN, goal below 140/90,Permanent atrial fibrillation (HCC),Hyperglycem ia Take 1 capsule by mouth in the morning. 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 ICD-10 update of inactive term documented as of this encounter (statuses as of 08/31/2023) Resolved Problems Problem Noted Date Diagnosed Date Resolved Date Permanent atrial fibrillation 05/03/2019 12/30/2021 Paroxysmal atrial fibrillation 02/25/2018 05/03/2019 HTN, goal below 140/80 09/05/201112/05 Overview: Per HTN Protocol Heart failure, diastolic, due to HTN 02/10/2011 03/03/2017 Dyslipidemia, goal LDL below 130 02/10/2011 04/22/2011 Shortness of breath 08/16/2010 08/26/19 18 Obesity, morbid (more than 1 00 lbs over ideal weight or BMI > 40) 09/18/2009 01/11/2013 Overview: Per Obesity Taxonomy ICD-10 update of inactive term Dysuria 09/14/2009 09/05/2011 HTN, goal below 130/80 05/15/200909/04 Overview: Modified per HTN protocol #16. Other specified cardiac dysrhythmias(427.89) 7 09/05/2011 HTN, goal to be determined 12/10/2006 1 07/15/2008 Overview: Modified per HTN protocol #16. 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/19 19 nursing home current use of ant icoagulant therapy 12/09/2006 07/05/2008 Overview: ICD-10 update of inactive term Anticoagulation management encounter 12/09/2006 06/30/2007 ADVANCE DIRECTIVE INFORMATION 11/04/2005 08/25/2017 Overview: Given to pt. Malignant neoplasm of colon 06/12/1999 11/11/2016 OTHER SPECIFIED DISORDERS OF THE ESOPHAGUS 03/17/1999 10/13/2018 Palpitations 09/21/1998 09/05/2011 IRON DEFIC ANEMIA NOS 09/15/19972017 Type 2 diabetes mellitus wit h hemoglobin A1c goal of less than 7.0% 08/11/1997 04/19/2009 Overview: Per Diabetes Taxonomy. ICD-10 update of inactive term OBESITY, UNSPECIFIED 010 Overview: Per Obesity Taxonomy documented as of this encounter (statuses as of 08/31/2023) Immunizations Name Administration Dates Next Due Pneumococcal Conjugate Vaccine, 7 Valent 006 documented as of this encounter Social History Tobacco Use Types Packs/Day Years Used Date Smoking Tobacco: Former Cigarettes Q uit: 08/26/2011 Smokeless Tobacco: Never Alcohol Use Standard Drinks/Week Comments Yes 0 (1 standard drink = 0.6 oz pur e alcohol) few/year PHQ-2 Answer Date Recorded PHQ Adult Total Score 15 03/04/2023 Hunger Vital Sign Answer Date Recorded Within the past 12 months, y ou worried that your food would run out before you got the money to buy more. Never true 12/22/19 22 Within the past 12 months, t he food you bought just didn't last and you didn't have money to get more. Never true 12/21/2021 Sex and Gender Information Value Date Recorded Sex Assigned at Female 10/13/2018 2:51 PM EDT Gender Identity Female 10/13/2018 2:51 PM EDT Sexual Orientation Straight 10/13/2018 2: 51 PM EDT Job Start Date Occupation Industry Not on file Not on file Not on file documented as of this encounter Miscellaneous Notes * Telephone Encounter - Kassie Canela MD - 08/31/2023 9:50 AM EDTSigned Prescriptions: Disp Refills dilTIAZem HCl ER Beads 180 MG Oral Capsule*90 Cap*3 Sig: TAKE 1 CAPSULE BY MOUTH EVERY DAY (MUST BE [facility] [place]: [id number]) Authorizing Provider: KASSIE CANELA * Telephone Encounter - Vee Olsen COT - 08/31/2023 9:45 AM EDTPending Prescriptions: Disp Refills dilTIAZem HCl ER Beads 180 MG Oral Capsule*90 Cap*3 Sig: TAKE 1 CAPSULE BY MOUTH EVERY DAY (MUST BE [facility] [place]: [id number]) * Telephone Encounter - Vee Olsen COT - 08/31/2023 9:45 AM EDT Did you pend patient's preferred pharmacy and medication before forwarding?yes Pharmacy: [id number] [address] [place] [address] Pending Prescriptions: Disp Refills dilTIAZem HCl ER Beads 180 MG Oral Capsul*90 Cap*3 Sig: TAKE 1 CAPSULE BY MOUTH EVERY DAY (MUST BE [facility] [place]: [id number]) Last Visit: 06/29/2023 (in office), Visit date not found (telemedicine) Next Visit: Visit date not found If no future appointments scheduled, and last appointment is greater than a year ago, please schedule patient for a follow-up appointment Last date the medication was ordered: 03-17-2023 Is this request for a controlled substance?No Urine Drug Screen:No results found. However, due to the size of the patient record, not all encounters were searched. Please check Results Review for a complete set of results. Patient Phone Numbers Labs: Lab Results Component Value Date/Time CREAT 0.9 06/29/2023 08:09 AM CREAT 0.9 03/20/2020 04:08 PM POTASSIUM 4.1 06/29/2023 08:09 AM POTASSIUM 4.2 03/20/2020 04:08 PM TSH 1.88 05/06/2022 11:58 AM TSH 1.66 05/03/2019 03:00 PM LDLCALC 73 06/29/2023 08:09 AM LDLCALC 104 05/03/2019 03:00 PM LDLDIRECT 105 03/20/2020 04:08 PM ALT 28 06/29/2023 08:09 AM ALT 29 03/20/2020 04:08 PM HGBA1C 9.1 (H) 06/29/2023 08:09 AM HGBA1C 8.7 (H) 03/20/2020 04:08 PM documented in this encounter Plan of Treatment Upcoming Encounters Date Type Department Care Team (Late st Contact Info) Description 01/11/2024 2:40 PM EDT Office Visit General Internal Medicine [address] [place] [phone] Teodoro Haile MD [address] [facility] [place] [address] 01/29/2024 1:30 PM EDT Office Visit Ophthalmology, [facility] [address] [facility] [place] [address] Chucho Martinez MD [address] [place] [phone] Health Maintenance Due Date Last Done Comments DXA Scan 1956 Pneumococcal Vaccine: 65+ Years (1 of 2 - PCV) 1962 Mammogram 1996 DTaP,Tdap,and Td Vaccines (1 - Tdap) 12/13/1999 12/12/1999 Cologuard 2001 Sigmoidoscopy 2001 Fecal Occult Blood Test 12/19/2001 12/20/19, 10/18/2000, 10/02/1998 Zoster Vaccines (1 of 2) 2006 Colonoscopy 12/21/2008 12/21/1998 Colorectal Cancer Screening 12/21/2008 Diabetic Foot Exam 02/25/2019 02/25/2018, 0 07/11/2016, 08/21/2015, Additional history exists Albumin/Creatinine Ratio 05/03/2020 019, 02/25/2018, 02/05/2016, Additional history exists COVID-19 Vaccine ( season) 2023 Influenza Vaccine (FLU shot) (#1) 2023 Depression, Most Recent Score >= 10 (will fire each visit until score < 10) 03/05/2023 03/04/2023 *NEPHROLOGY REFERRAL DUE TO RESISTANT HTN 2023 HbA1c 12/28/2023 06/29/2023, 04/22, 03/20/2020, Additional history exists GFR 06/29/2024 06/29/2023, 04/22, 03/20/2020, Additional history exists Diabetic Eye Exam 07/28/2024 07/28/2023, , 07/28/2023, Additional history exists Lipid Panel 06/29/2028 06/29/2023, 04/22, 03/20/2020, Additional history exists Pap Smear Discontinued 11/18/2022, 06/23, 03/10/2022, Additional history exists GARDASIL-HPV IMMUNIZATION SERIES Aged Out No longer eligible based on patient's age to complete this topic Hepatitis B Aged Out No longer eligi ble based on patient's age to complete this topic MENINGOCOCCAL (MENACTRA/MENVEO) Aged Out No longer eligible based on patient's age to complete this topic documented as of this encounter Medical Devices Not on filedocumented as of this encounter Visit Diagnoses Diagnosis HTN, goal below 140/90 Unspecified essential hypertension Permanent atrial fibrillation (HCC) Atrial fibrillation Hyperglycemia Other abnormal glucose documented in this encounter 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
--- OUTSIDE RECORDS SUMMARY | 2023-09-25 11:12 | External Medical Summary | Summary of Care ---
Author Name Unknown Organization [facility] Address [address] [place] [address] Phone [phone] Care Team Providers Care Attorney Recruiter Name Role Phone Teodoro Haile MD Primary Care Provider + Reason for Visit * Reason Comments NEW PATIENT Referred By Dr Cecilia lucas for moderate NPDR with edema OD. * Evaluate & Treat - Unlimited Visits (Within 30 days (routine)) - Authorized Specialty Diagnoses / Procedures Referred By Milady santo Referred To Contact Ophthalmology Diagnoses Moderate nonproliferative diabetic retinopathy (HCC) Retinal edema of right eye Micaela Wilkerson, OD [address] [place] [address] Referral ID Status Reason Start Date Expiration Date Visits Requested Visits Authorized [id number] Authorized Specialty Services Required 07/09/[phone] Encounter Details Date Type Department Care Team (Latest Contact Info) Description 07/28/2023 12:30 PM EST Office Visit Ophthalmology, [facility] [address] [facility] [place] [address] Chucho Martinez MD [address] [place] [id number] Moderate nonproliferative diabetic retinopathy of both eyes with macular edema associated with type 2 diabetes mellitus (HCC)*; Diabetic cataract of both eyes (HCC) Allergies Active Allergy Reactions Criticality Noted Date Comments Adhesive Tape Medium 11/11/2018 Other reaction(s): SKIN IRRITATION Labetalol 07/06/2012 Drug intolerance, bradycardia and hypotension June [facility] Nitrofurantoin Monohydrate Macrocrystals 11/25/2006 hives Nickel Low 11/11/2018 Other reaction(s): "TURNS MY SKIN GREEN" Wheat Bran 04/20/2017 Wheat and all grains documented as of this encounter (statuses as of 07/28/2023) Medications Medication Sig Dispensed Refills Start Date End Date Status NATURAL SUPPLEMENT Vitamin D/Vitamin K drops 0 03/24/2016 Active Kelp 150 MCG TABSIndications:Pt unsure of dose. Take 1 Tablet by [...] 10 MEQ Oral Tablet Extended Release (Klor-Con M10)Indications:Pe rmanent atrial fibrillation (HCC),HTN, goal below 140/90 Take [...] 0 Active Furosemide 40 MG Oral Tablet (Lasix)Indications :HTN, goal below 140/90,Chronic fatigue Take 1/2 Two to three days per week 50 Tablet 3 05/06/2022 Active dilTIAZem HCl ER Beads 180 MG Oral Capsule Extended Release 24 HourIndications:HT N, goal below 140/90,Permanent atrial fibrillation (HCC),Hyperglycemi a Take 1 capsule by mouth in the morning. 10 Capsule 1 03/17/2023 Active Additional Information Patient taking differently:180 mg OralQ-1999, Reported on 06/29/2023 LORazepam 0.5 MG Oral Tablet (Ativan)Indication s:Anxiety Take 1 Tablet by mouth 2 times a day as needed for Anxiety. 60 Tablet 2 03/25/2023 Active Losartan Potassium 25 MG Oral Tablet (Cozaar)Indication s:HTN, goal below 140/90 Take 2 Tablets by mouth in the morning. 180 Tablet 3 06/29/2023 Active Metoprolol Succinate ER 100 MG Oral Tablet Extended Release 24 Hour (toPROL XL)Indications:Par oxysmal atrial fibrillation (HCC) TAKE 1 TABLET BY MOUTH IN THE MORNING AND BEFORE BEDTIME 180 Tablet 3 06/30/2023 Active NATURAL SUPPLEMENT Take by mouth 2 Capsules daily . Ultimate Eye Support with Astaxanthin 0 4 Discontinue d(Medicatio n List Clean Up) documented as of this encounter (statuses as of 07/28/2023) Active Problems Problem Noted Date Diagnosed Date [...] as of this encounter (statuses as of 07/28/2023) Resolved Problems Problem Noted Date Diagnosed Date [...] 7 09/05/2011 HTN, goal to be determined 12/10/200607/15/2008 Overview: Modified per HTN protocol #16. 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 therapy 12/09/2006 [...] as of this encounter (statuses as of 07/28/2023) Immunizations Name Administration Dates Next Due Pneumococcal Conjugate Vaccine, 7 Valent 006 documented as of this encounter Social History Tobacco Use Types Packs/Day Years Used Date Smoking Tobacco: Former Cigarettes 0.5 Q uit: 08/26/2011 Smokeless Tobacco: Never Alcohol [...] on file documented as of this encounter Progress Notes * Chucho Martinez MD - 07/28/2023 1:14 PM EST 07/28/2023 Nursing Notes: Allyn Ortega, RN 07/28/23 1309 Signed Gabriella Sam is a 68 year old female referred by Micaela Wilkerson* to evaluate for possible . Chief Complaint: Chief Complaint Patient presents with NEW PATIENT Referred By Dr Wilkerson for moderate NPDR with edema OD. Diabetic: Yes. How long have you been diabetic? 20+ years. Insulin: no Exercise: 5 to 7 times a week HPI: Location: Right eye How long has it been going on: 1 months Timing: NA Does anything improve or worsen the symptoms: No, Does not notice any change in vision Associated symptoms: Flashes - no Floaters - no Pain - no Redness - no Peripheral Visual Loss - no Current Ophthalmic Medications: None COMPREHENSIVE OCULAR HISTORY Any history in yourself or blood related family of: -Blindness- No -Macular Degeneration- Family - Father Dry -Retinal Detachment- No -Glaucoma/Pressure in the Eye- No -Have you ever had any major surgery of serious injury of or around the eyes- yes, Blepharoplasty -Are your eyes chronically- No FAMILY HISTORY: Family History Problem Relation Age of Onset Cancer Mother Cervical Hypertension Mother Eye Problems Father Dry AMD Hypertension Father Diabetes Grandmother (Maternal) Eye Problems None Denies family hx of RD, glaucoma, blindness Heart Disorder None Stroke None Thyroid Disorder None SOCIAL HISTORY: Social History Tobacco Use Smoking status: Former Packs/day: .5 Types: Cigarettes Quit date: 08/26/2011 Years since quittin.9 Smokeless tobacco: Never Substance Use Topics Alcohol use: Yes Comment: few/year Drug use: No PMH: Past Medical History: Diagnosis Date Anxiety 08/25/2017 Atrial fibrillation ([facility]) Dyslipidemia, goal LDL below 100 04/22/2011 Heart Failure, Diastolic due to HTN 02/10/2011 History of iron deficiency anemia 08/25/2017 HTN, goal below 140/90 Moderate nonproliferative diabetic retinopathy of right eye with macular edema associated with type2 diabetes mellitus ([facility]) 04/30/2023 Obesity, morbid (more than 100 lbs over ideal weight or BMI > 40) ([facility]) 09/19/2011 Other specified anemias Patient Active Problem List Diagnosis Code Type 2 diabetes mellitus with target hemoglobin A1c of less than 7.5 percent ([facility]) E11.9 Dyslipidemia, goal LDL below 100 E78.5 Obesity, morbid (more than 100 lbs over ideal weight or BMI > 40) ([facility]) E66.01 HTN, goal below 140/90 I10 Anxiety F41.9 History of iron deficiency anemia Z86.2 Persistent atrial fibrillation ([facility]) I48.19 Moderate nonproliferative diabetic retinopathy of right eye with macular edema associated with type2 diabetes mellitus ([facility]) E11.3311 History obtained from: Patient ROS: 1. Constitutional : No weight loss, feeling tired, fever. 2. HENT: No hearing loss, headache. 3. Cardio: No DC, CHF, Aneurysm. 4. Pulm: No asthma, COPD, trouble breathing. 5. GI: No ulcers. 6. : No protein in urine, dialysis, kidney stones. 7. Neuro: No stroke, seizures. 8. Endo: Positive for diabetes How long have you been diabetic? 20+ years. Do you check your sugar daily? YES. Fasting BS this mornin mg/dl. Last Hemoglobin A1C: Lab Results Component Value Date/Time HGBA1C 9.1 (H) 06/29/2023 08:09 AM HGBA1C 8.0 (H) 05/06/2022 11:58 AM HGBA1C 8.7 (H) 03/20/2020 04:08 PM HGBA1C 11.8 (H) 05/03/2019 03:00 PM HGBA1C 7.9 (H) 10/13/2018 03:35 PM 9. Skin: No rashes, unusual moles. 10. Muscl/skel: No arthritis. 11. Eyes: see exam. VA, IOP, Confrontational noble, Motility, pupil check and dilation can be found in ophth exam. Nursing notes reviewed. Base Eye Exam Visual Acuity (Snellen - Linear) Right Left Dist sc 20/25 +2 20/300 -2 Dist cc 20/30 -1 20/50 +2 Dist ph cc NI 20/40 -1 Correction: Glasses Tonometry (Tonopen, 1:09 PM) Right Left Pressure 14 13 Pupils Dark React APD Right 4 Brisk None Left 4 Brisk None Visual Noble (Counting fingers) Right Left Full Full Extraocular Movement Right Left Full Full Neuro/Psych Oriented x3: Yes Dilation Both eyes: 1.0% Mydriacyl, 2.5% Phenylephrine, 0.5% Proparacaine @ 1:02 PM Patient cautioned that effects of dilation may last 2-7 hours dependant upon individual reaction. It was discussed that driving while dilated is not recommended. Slit Lamp and Fundus Exam External Exam Right Left External Normal Normal Slit Lamp Exam Right Left Lids/Lashes Normal Normal Conjunctiva/Sclera White and quiet White and quiet Cornea Clear Clear Anterior Chamber Deep and quiet Deep and quiet Iris Round and reactive Round and reactive Lens 1+ Nuclear sclerosis, 1+ Cortical cataract 1+ Cortical cataract, 1+ Nuclear sclerosis, Vacuoles Fundus Exam Right Left Vitreous Normal Normal Disc Normal Normal C/D Ratio 0.2 0.2 Macula Mild DME, dbh superior Mild superior DME Vessels Normal Normal Periphery Moderate NPDR Moderate NPDR OCT: OD DME with exudates OS Mild Superior DME Assessment/Plan: 1. Moderate nonproliferative diabetic retinopathy of both eyes with macular edema associated with type 2 diabetes mellitus (HCC) OD > OS, but vision is better OD Overall not bothered Discussed indications for treatment ie laser, anti-vegf or topical drops, no need at this point, will observe Recheck in 6 months if stable go to yearly alternating with Dr. Wilkerson Diabetic retinopathy is present. No smoking. Strict glycemic and blood pressure control are essential in order to prevent irreversible vision loss, stroke, heart attack, kidney failure and amputation. 2. Diabetic cataract of both eyes (HCC) NVS Observe May need treatment if pursuing CE FOLLOW UP: Follow Up: Return in about 6 months (around 01/26/2024) for DFE, OCT, OU. | For: DFE, OCT, OU Chucho Martinez MD 07/28/2023 documented in this encounter Nursing Notes * Allyn Ortega, CHELSIE - 07/28/2023 12:57 PM EST Gabriella Sam is a 68 year old female referred by Micaela Wilkerson* to evaluate for possible . Chief Complaint: Chief Complaint Patient presents with NEW PATIENT Referred By Dr Wilkerson for moderate NPDR with edema OD. Diabetic: Yes. How long have you been diabetic? 20+ years. Insulin: no Exercise: 5 to 7 times a week HPI: Location: Right eye How long has it been going on: 1 months Timing: NA Does anything improve or worsen the symptoms: No, Does not notice any change in vision Associated symptoms: Flashes - no Floaters - no Pain - no Redness - no Peripheral Visual Loss - no Current Ophthalmic Medications: None COMPREHENSIVE OCULAR HISTORY Any history in yourself or blood related family of: -Blindness- No -Macular Degeneration- Family - Father Dry -Retinal Detachment- No -Glaucoma/Pressure in the Eye- No -Have you ever had any major surgery of serious injury of or around the eyes- yes, Blepharoplasty -Are your eyes chronically- No FAMILY HISTORY: Family History Problem Relation Age of Onset Cancer Mother Cervical Hypertension Mother Eye Problems Father Dry AMD Hypertension Father Diabetes Grandmother (Maternal) Eye Problems None Denies family hx of RD, glaucoma, blindness Heart Disorder None Stroke None Thyroid Disorder None SOCIAL HISTORY: Social History Tobacco Use Smoking status: Former Packs/day: .5 Types: Cigarettes Quit date: 08/26/2011 Years since quittin.9 Smokeless tobacco: Never Substance Use Topics Alcohol use: Yes Comment: few/year Drug use: No PMH: Past Medical History: Diagnosis Date Anxiety 08/25/2017 Atrial fibrillation (HCC) Dyslipidemia, goal LDL below 100 04/22/2011 Heart Failure, Diastolic due to HTN 02/10/2011 History of iron deficiency anemia 08/25/2017 HTN, goal below 140/90 Moderate nonproliferative diabetic retinopathy of right eye with macular edema associated with type2 diabetes mellitus ([facility]) 04/30/2023 Obesity, morbid (more than 100 lbs over ideal weight or BMI > 40) ([facility]) 09/19/2011 Other specified anemias Patient Active Problem List Diagnosis Code Type 2 diabetes mellitus with target hemoglobin A1c of less than 7.5 percent ([facility]) E11.9 Dyslipidemia, goal LDL below 100 E78.5 Obesity, morbid (more than 100 lbs over ideal weight or BMI > 40) ([facility]) E66.01 HTN, goal below 140/90 I10 Anxiety F41.9 History of iron deficiency anemia Z86.2 Persistent atrial fibrillation ([facility]) I48.19 Moderate nonproliferative diabetic retinopathy of right eye with macular edema associated with type2 diabetes mellitus ([facility]) E11.3311 History obtained from: Patient ROS: 1. Constitutional : No weight loss, feeling tired, fever. 2. HENT: No hearing loss, headache. 3. Cardio: No DC, CHF, Aneurysm. 4. Pulm: No asthma, COPD, trouble breathing. 5. GI: No ulcers. 6. : No protein in urine, dialysis, kidney stones. 7. Neuro: No stroke, seizures. 8. Endo: Positive for diabetes How long have you been diabetic? 20+ years. Do you check your sugar daily? YES. Fasting BS this mornin mg/dl. Last Hemoglobin A1C: Lab Results Component Value Date/Time HGBA1C 9.1 (H) 06/29/2023 08:09 AM HGBA1C 8.0 (H) 05/06/2022 11:58 AM HGBA1C 8.7 (H) 03/20/2020 04:08 PM HGBA1C 11.8 (H) 05/03/2019 03:00 PM HGBA1C 7.9 (H) 10/13/2018 03:35 PM 9. Skin: No rashes, unusual moles. 10. Muscl/skel: No arthritis. 11. Eyes: see exam. VA, IOP, Confrontational noble, Motility, pupil check and dilation can be found in ophth exam. documented in this encounter Plan of Treatment Upcoming Encounters Date Type Department Care Team (Late st Contact Info) Description 01/11/2024 2:40 PM EDT Office Visit General Internal Medicine [place] Rylee Bradley [address] [place] [id number] Teodoro Haile MD [address] [facility] [place] [address] Scheduled Referrals Name Type Priority Associated Diagnoses Orde r Schedule ADULT/PEDS OPHTHALMOLOGY/OPT OMETRY REFERRAL OP Referral Within 30 days (routine) Moderate nonproliferative diabetic retinopathy (HCC) Retinal edema of right eye Ordered: 07/09/2023 Health Maintenance Due Date Last Done Comments DXA Scan 1955 COVID-19 Vaccine (#1) 1955 Pneumococcal Vaccine: 65+ Years (1 - PCV) 1962 Mammogram 1996 DTaP,Tdap,and Td Vaccines (1 - Tdap) 12/13/1999 12/12/1999 Cologuard 2001 Sigmoidoscopy 2001 Fecal Occult Blood Test 12/19/2001 12/20/19 01, 10/18/2000, 10/02/1998 Zoster Vaccines (1 of 2) 2006 Colonoscopy 12/21/2008 12/21/1998 Colorectal Cancer Screening 12/21/2008 Hepatitis B (1 of 3 - Risk 3-dose series) 2016 Diabetic Foot Exam 02/25/2019 02/25/2018, 0 07/11/2016, 08/21/2015, Additional history exists Albumin/Creatinine Ratio 05/03/20202 019, 02/25/2018, 02/05/2016, Additional history exists Influenza Vaccine (FLU shot) (#1) 2023 Depression, [...] as of this encounter Visit Diagnoses Diagnosis Moderate nonproliferative diabetic retinopathy of both eyes with macular edema associated with type 2 diabetes mellitus (HCC)- Primary Diabetic cataract of both eyes (HCC) documented in this encounter Care Teams Attorney Recruiter Relationship Specialty Start Date End Date Teodoro Haile MD [address] [place] [address] PCP - General Internal Medicine 09/03/11 documented as of this encounter
--- NOTE | 2023-09-25 13:43 | Cardiology Progress Note ---
Date of Service September 25, 2023 Assessment & Plan Admission and Anticipated Discharge Date Admission Date: September 24, 2023 Results & Data Vital Signs (Past 12 Hours) Vital Signs Pulse Pulse Resp BP BP BP Pulse Ox 09/25/23 09:41 170/126 H 09/25/23 09:40 110 H 18 170/126 H 92 09/25/23 09:38 107 H 18 170/126 H 93 09/25/23 09:19 114 H 172/111 H 09/25/23 08:58 09/25/23 07:12 102 H 16 157/108 H 97 09/25/23 07:11 98 H 09/25/23 06:44 100 H 20 187/116 H 91 09/25/23 04:00 99 H 171/119 H 09/25/23 03:57 97 H 20 177/109 H 98 09/25/23 03:11 101 H 181/129 H 09/25/23 02:07 103 H 182/113 H Pulse Ox O2 Del Method O2 Del Method O2 Flow Rate 09/25/23 09:41 09/25/23 09:40 Room Air 09/25/23 09:38 Room Air 09/25/23 09:19 09/25/23 08:58 92 Room Air 09/25/23 07:12 Room Air 5 09/25/23 07:11 09/25/23 06:44 Room Air 09/25/23 04:00 09/25/23 03:57 Nasal Cannula 5 09/25/23 03:11 09/25/23 02:07
[2023-09-25] MEDS ORDERED: HYDROmorphone INJ 0.5 MG/0.5 ML SYR IV PRN (14:10)
[2023-09-25] MEDS: LOSARTAN POTASSIUM 25 MG TAB PO ONE (16:21)
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
[2023-09-25] MEDS: DOCUSATE SODIUM 100 MG CAP PO ONE (18:02)
[2023-09-25] MEDS: ACETAMINOPHEN 1,000 MG/100 ML VIAL IV PRN (19:43)
[2023-09-25] MEDS: dilTIAZem HCL 180 MG CAPCR PO SCH (19:47)
[2023-09-25] MEDS: DOCUSATE SODIUM 100 MG CAP PO SCH (19:48)
[2023-09-26 06:07] LABS: Basophils # (auto) 0.03 K/uL (0.00-0.20); Basophils % (auto) 0.4 %; Eosinophils # (auto) 0.21 K/uL (0.00-0.50); Eosinophils % (auto) 2.9 %; Hematocrit (blood only) 35.7 % (37.0-47.0); Hemoglobin 12.1 g/dl (12.0-16.0); Immature Granulocytes # (auto) 0.02 K/uL (0.01-0.20); Immature Granulocytes % (auto) 0.3 %; Lymphocytes # (auto) 1.11 K/uL (1.20-3.40); Lymphocytes % (auto) 15.5 %; Mean Corpuscular Hemoglobin 30.5 pg (25.0-34.0); Mean Corpuscular Hgb Conc 33.9 g/dL (32.0-36.0); Mean Corpuscular Volume 89.9 fL (80.0-100.0); Mean Platelet Volume 9.4 fL (9.4-12.4); Monocytes # (auto) 0.71 K/uL (0.11-0.59); Monocytes % (auto) 9.9 %; Neutrophils # (auto) 5.07 K/uL (1.40-6.50); Platelet Count 152 K/uL (130-400); RDW Coefficient of Variation 13.8 % (11.5-14.5); RDW Standard Deviation 45.2 fL (36.4-46.3); Red Blood Count 3.97 M/uL (4.20-5.40); White Blood Count 7.15 K/ul (4.8-10.8)
[2023-09-26 06:51] LABS: Albumin Globulin Ratio 1.3 (0.9-2); Albumin Level 3.2 gm/dl (3.4-5.0); BUN Creatinine Ratio 30.4 (10-20); Calcium 8.8 mg/dl (8.6-10.3); Est GFR (African American) 65.9 ml/min; Est GFR (Non-African American) 56.9 ml/min; Globulin 2.5 gm/dl (2.5-4.0); Magnesium 1.8 mg/dl (1.7-2.4); Phosphorus 4.2 mg/dl (2.5-4.9); Potassium 3.7 mmol/L (3.5-5.1); Total Protein 5.7 gm/dl (6.0-8.3)
--- NOTE | 2023-09-26 07:09 | Electrocardiogram Report ---
Test Reason : Blood Pressure : / mmHG Vent. Rate : 121 BPM Atrial Rate : 000 BPM P-R Int : 000 ms QRS Dur : 080 ms QT Int : 332 ms P-R-T Axes : 000 006 107 degrees QTc Int : 471 ms Atrial fibrillation with rapid ventricular response Low voltage QRS Septal infarct , age undetermined Abnormal ECG When compared with ECG of 12-NOV-2018 07:35, Septal infarct is now Present Confirmed by Srikanth Nieves ([id number]) on 09/26/2023 7:09:09 AM Referred By: REFERRED SELF Confirmed By:Srikanth Nieves
[2023-09-26] MEDS: LOSARTAN POTASSIUM 25 MG TAB PO SCH (08:00)
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
[2023-09-26] MEDS ORDERED: LORazepam 0.5 MG TAB PO PRN (15:17)
[2023-09-26] MEDS: LORazepam 0.5 MG TAB PO PRN (20:35)
--- NOTE | 2023-09-26 22:12 | Communication Note ---
Date of Service: September 26, 2023 Made aware of rapid A-fib as per RN. SBP 170s, heart rate 130s. AP Rapid A-fib Hypertensive urgency Hold med/tele transfer, keep patient in PCU IV Cardizem bolus 1 dose now Increase maintenance Cardizem from 180 mg to 240 mg daily Continue current maximal Toprol-XL dose
[2023-09-26] MEDS: POTASSIUM CHLORIDE CRTAB 20 MEQ TABCR PO STA (22:18)
[2023-09-26] MEDS: MAGNESIUM SULFATE / D5W 1 GM/100 ML BAG IV ONE (22:19)
[2023-09-26] MEDS: dilTIAZem HCl 5 MG/ML 5 ML VIAL IV STA (22:36)
[2023-09-26] MEDS: ACETAMINOPHEN 1,000 MG/100 ML VIAL IV STA (22:43)
[2023-09-27 05:28] LABS: Basophils # (auto) 0.04 K/uL (0.00-0.20); Basophils % (auto) 0.5 %; Eosinophils # (auto) 0.25 K/uL (0.00-0.50); Eosinophils % (auto) 3.4 %; Hematocrit (blood only) 35.9 % (37.0-47.0); Hemoglobin 11.8 g/dl (12.0-16.0); Immature Granulocytes # (auto) 0.02 K/uL (0.01-0.20); Immature Granulocytes % (auto) 0.3 %; Lymphocytes # (auto) 1.39 K/uL (1.20-3.40); Lymphocytes % (auto) 18.9 %; Mean Corpuscular Hemoglobin 29.4 pg (25.0-34.0); Mean Corpuscular Hgb Conc 32.9 g/dL (32.0-36.0); Mean Corpuscular Volume 89.5 fL (80.0-100.0); Mean Platelet Volume 9.9 fL (9.4-12.4); Monocytes # (auto) 0.79 K/uL (0.11-0.59); Monocytes % (auto) 10.7 %; Neutrophils # (auto) 4.86 K/uL (1.40-6.50); Neutrophils % (auto) 66.2 %; Platelet Count 165 K/uL (130-400); RDW Coefficient of Variation 13.5 % (11.5-14.5); RDW Standard Deviation 44.6 fL (36.4-46.3); Red Blood Count 4.01 M/uL (4.20-5.40); White Blood Count 7.35 K/ul (4.8-10.8)
[2023-09-27 05:44] LABS: Albumin Globulin Ratio 1.2 (0.9-2); Albumin Level 3.2 gm/dl (3.4-5.0); BUN Creatinine Ratio 32.3 (10-20); Calcium 8.7 mg/dl (8.6-10.3); Creatinine Clr Calc Pharmacy 83.4 ml/min; Est GFR (African American) 73.7 ml/min; Est GFR (Non-African American) 63.6 ml/min; Globulin 2.7 gm/dl (2.5-4.0); Phosphorus 4.1 mg/dl (2.5-4.9); Potassium 3.9 mmol/L (3.5-5.1); Total Protein 5.9 gm/dl (6.0-8.3)
[2023-09-27 07:21] LABS: Estimated Average Glucose 154 mg/dl
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
[2023-09-27] MEDS: FUROSEMIDE 20 MG TAB PO SCH (16:03)
[2023-09-27] MEDS: dilTIAZem HCL 240 MG CAPCR PO SCH (20:42)
--- NOTE | 2023-09-27 22:53 | Electrocardiogram Report ---
Test Reason : Blood Pressure : / mmHG Vent. Rate : 130 BPM Atrial Rate : 138 BPM P-R Int : 000 ms QRS Dur : 078 ms QT Int : 308 ms P-R-T Axes : 000 008 224 degrees QTc Int : 453 ms Atrial fibrillation with rapid ventricular response Nonspecific ST and T wave abnormality Abnormal ECG When compared with ECG of 24-SEP-2023 17:03, No significant change Confirmed by Srikanth Nieves ([id number]) on 09/27/2023 10:53:37 PM Referred By: REFERRED SELF Confirmed By:Srikanth Nieves
[2023-09-27] MEDS: METOPROLOL TARTRATE 1 MG/ML VIAL IV STA (23:34)
[2023-09-28 06:06] LABS: Basophils # (auto) 0.03 K/uL (0.00-0.20); Basophils % (auto) 0.5 %; Eosinophils # (auto) 0.15 K/uL (0.00-0.50); Eosinophils % (auto) 2.5 %; Hematocrit (blood only) 34.3 % (37.0-47.0); Hemoglobin 11.2 g/dl (12.0-16.0); Immature Granulocytes # (auto) 0.02 K/uL (0.01-0.20); Immature Granulocytes % (auto) 0.3 %; Lymphocytes # (auto) 0.82 K/uL (1.20-3.40); Lymphocytes % (auto) 13.6 %; Mean Corpuscular Hgb Conc 32.7 g/dL (32.0-36.0); Mean Corpuscular Volume 88.9 fL (80.0-100.0); Mean Platelet Volume 9.8 fL (9.4-12.4); Monocytes # (auto) 0.58 K/uL (0.11-0.59); Monocytes % (auto) 9.6 %; Neutrophils # (auto) 4.45 K/uL (1.40-6.50); Neutrophils % (auto) 73.5 %; Platelet Count 144 K/uL (130-400); RDW Coefficient of Variation 13.6 % (11.5-14.5); RDW Standard Deviation 44.3 fL (36.4-46.3); Red Blood Count 3.86 M/uL (4.20-5.40); White Blood Count 6.05 K/ul (4.8-10.8)
[2023-09-28 06:21] LABS: Albumin Globulin Ratio 1.2 (0.9-2); Albumin Level 2.9 gm/dl (3.4-5.0); BUN Creatinine Ratio 29.9 (10-20); Bilirubin,Total 0.9 mg/dl (0.2-1.0); Calcium 8.6 mg/dl (8.6-10.3); Est GFR (Non-African American) 60.4 ml/min; Globulin 2.5 gm/dl (2.5-4.0); Magnesium 1.9 mg/dl (1.7-2.4); Phosphorus 3.6 mg/dl (2.5-4.9); Potassium 3.8 mmol/L (3.5-5.1); Total Protein 5.4 gm/dl (6.0-8.3)
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
[2023-09-28] MEDS: ACETAMINOPHEN 1,000 MG/100 ML VIAL IV PRN (20:28)
[2023-09-29] MEDS ORDERED: dilTIAZem HCl 5 MG/ML 5 ML VIAL IV STA (00:10)
[2023-09-29] MEDS: METOPROLOL TARTRATE 1 MG/ML VIAL IV STA (01:24)
[2023-09-29 06:13] LABS: Hematocrit (blood only) 33.9 % (37.0-47.0); Hemoglobin 11.3 g/dl (12.0-16.0); Mean Corpuscular Hemoglobin 29.8 pg (25.0-34.0); Mean Corpuscular Hgb Conc 33.3 g/dL (32.0-36.0); Mean Corpuscular Volume 89.4 fL (80.0-100.0); Platelet Count 164 K/uL (130-400); RDW Coefficient of Variation 13.7 % (11.5-14.5); Red Blood Count 3.79 M/uL (4.20-5.40); White Blood Count 6.08 K/ul (4.8-10.8)
[2023-09-29 06:28] LABS: BUN Creatinine Ratio 32.6 (10-20); Calcium 8.6 mg/dl (8.6-10.3); Creatinine Clr Calc Pharmacy 81.6 ml/min; Est GFR (African American) 74.7 ml/min; Est GFR (Non-African American) 64.4 ml/min; Magnesium 1.9 mg/dl (1.7-2.4); Phosphorus 3.7 mg/dl (2.5-4.9); Potassium 3.7 mmol/L (3.5-5.1)
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
[2023-09-30 06:15] LABS: BUN Creatinine Ratio 34.1 (10-20); Calcium 8.6 mg/dl (8.6-10.3); Creatinine Clr Calc Pharmacy 91.7 ml/min; Est GFR (African American) 85.8 ml/min; Magnesium 1.8 mg/dl (1.7-2.4)
[2023-09-30 06:27] LABS: Hematocrit (blood only) 33.9 % (37.0-47.0); Hemoglobin 11.3 g/dl (12.0-16.0); Mean Corpuscular Hemoglobin 29.3 pg (25.0-34.0); Mean Corpuscular Hgb Conc 33.3 g/dL (32.0-36.0); Mean Corpuscular Volume 87.8 fL (80.0-100.0); Mean Platelet Volume 9.9 fL (9.4-12.4); Platelet Count 172 K/uL (130-400); RDW Coefficient of Variation 13.3 % (11.5-14.5); RDW Standard Deviation 43.2 fL (36.4-46.3); Red Blood Count 3.86 M/uL (4.20-5.40); White Blood Count 5.77 K/ul (4.8-10.8)
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
[2023-09-30] MEDS: POLYETHYLENE (MIRALAX) 17 GM PACK PO SCH (11:42)
[2023-09-30] MEDS: ACETAMINOPHEN 325 MG TAB PO SCH (12:58)
== END 2023-09-30 16:23 | disposition home health service (06) | DRG 177 ==
LOC: ED 16:50 → SUATTDRO 23:00 → EDINP 23:00 → 4W 23:37 → 2N 09-27 22:24

== ENCOUNTER 2023-10-20 08:29 | Inpatient (IN) ==
[2023-10-20 09:27] LABS: Basophils # (auto) 0.05 K/uL (0.00-0.20); Basophils % (auto) 0.6 %; Eosinophils # (auto) 0.09 K/uL (0.00-0.50); Eosinophils % (auto) 1.1 %; Hematocrit (blood only) 38.9 % (37.0-47.0); Hemoglobin 12.9 g/dl (12.0-16.0); Immature Granulocytes # (auto) 0.03 K/uL (0.01-0.20); Immature Granulocytes % (auto) 0.4 %; Lymphocytes # (auto) 0.99 K/uL (1.20-3.40); Lymphocytes % (auto) 12.6 %; Mean Corpuscular Hemoglobin 29.8 pg (25.0-34.0); Mean Corpuscular Hgb Conc 33.2 g/dL (32.0-36.0); Mean Corpuscular Volume 89.8 fL (80.0-100.0); Mean Platelet Volume 9.5 fL (9.4-12.4); Monocytes # (auto) 0.52 K/uL (0.11-0.59); Monocytes % (auto) 6.6 %; Neutrophils # (auto) 6.19 K/uL (1.40-6.50); Neutrophils % (auto) 78.7 %; Platelet Count 212 K/uL (130-400); RDW Coefficient of Variation 13.9 % (11.5-14.5); RDW Standard Deviation 46.3 fL (36.4-46.3); Red Blood Count 4.33 M/uL (4.20-5.40); White Blood Count 7.87 K/ul (4.8-10.8)
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
[2023-10-20 09:34] LABS: Base Excess VBG 3.4 mEq/L; HCO3 VBG 29 mmol/L; Oxygen Saturation VBG 64.2 %; PCO2 VBG 44 mmHg (38-50); PO2 VBG 35 mmHg; pH VBG 7.42 (7.36-7.41)
[2023-10-20 09:43] LABS: Albumin Globulin Ratio 1.3 (0.9-2); Albumin Level 3.5 gm/dl (3.4-5.0); BUN Creatinine Ratio 33.7 (10-20); Bilirubin,Total 0.7 mg/dl (0.2-1.0); Calcium 8.9 mg/dl (8.6-10.3); Creatinine Clr Calc Pharmacy 55.6 ml/min; Est GFR (African American) 66.7 ml/min; Est GFR (Non-African American) 57.6 ml/min; Globulin 2.7 gm/dl (2.5-4.0); Magnesium 1.7 mg/dl (1.7-2.4); Potassium 4.2 mmol/L (3.5-5.1); Total Protein 6.2 gm/dl (6.0-8.3)
[2023-10-20 09:50] LABS: Troponin I High Sensitivity 7.4 pg/ml (0-14)
[2023-10-20 09:56] LABS: Influenza A virus by PCR Negative (Neg); Influenza B virus by PCR Negative (Neg); RSV by PCR Negative (Neg); SARS CoV2 RNA(COVID-19) Ceph NEGATIVE (Negative)
[2023-10-20 09:58] LABS: Partial Thromboplastin Ratio 0.9; Partial Thromboplastin Time 26 Seconds (21-31); Prothrombin Time 10.6 Seconds (9.0-12.0)
[2023-10-20 10:01] LABS: D Dimer 1180 ug/L FEU (0-500)
[2023-10-20] MEDS: OPTIRAY 320 125ml IV ONE (10:33)
--- NOTE | 2023-10-20 10:42 | XRay Report ---
XR chest 1V portable HISTORY: 68 years-old Female Dyspnea COMPARISON: CTA chest of same day TECHNIQUE: AP view of the chest FINDINGS: Cardiac silhouette is enlarged. Pulmonary vascular congestion and interstitial coarsening. No pneumot horax. Small right and moderate left pleural effusions with mild dependent bibasilar consolidation. D egenerative changes of the shoulders and spine. IMPRESSION: 1. Cardiomegaly with pulmonary edema. 2. Moderate left and small right pleural effusions with mild bibasilar consolidation favoring atelect asis. ACT 112: Negative or not required by law. The above report was generated using voice recognition software. It may contain grammatical, syntax o r spelling errors. Electronically signed by: Stan Graham M.D. 10/20/2023 10:41 AM
[2023-10-20 10:46] LABS: Appearance Urine Clear (Clear); Bacteria Urine Automated None Seen (None Seen); Bilirubin Urine Negative (Negative); Blood Urine Negative (Negative); Cast Urine Automated 0-2 /lpf (0-2); Color Urine Yellow; Glucose Urine UA 1+ (Negative); Ketones Urine Negative (Negative); Leukocyte Esterase Urine Negative (Negative); Nitrite Urine Negative (Negative); Protein Urine 3+ (Negative); RBC Urine Automated 0-2 /hpf (0-2); Urobilinogen Urine Negative (Negative); WBC Urine Automated 0-5 /hpf (0-5)
--- NOTE | 2023-10-20 11:07 | CT Scan Report ---
CT ANGIOGRAM OF THE CHEST CLINICAL HISTORY: Dyspnea COMPARISON STUDY: Chest x-ray dated 10/20/2023. Chest CT dated 09/24/2023. TECHNIQUE: Following the IV administration of 120 cc of Optiray 320, CT angiogram of the chest was pe rformed from the upper abdomen to the thoracic inlet utilizing the pulmonary embolus protocol. Images are reviewed in the axial, sagittal, and coronal planes. 3-D MIPS images are created and assessed. I V contrast was administered without complication. A dose lowering technique was utilized adhering to the principles of ALARA. The examination is degraded by large body habitus, and by streak artifact f rom the body wall abutting the CT gantry. There is also streak artifact from the arms which could not be elevated above the chest. CT DOSE: 965.29 mGy.cm FINDINGS: Thyroid: Imaged portions of the thyroid gland are heterogeneous and attenuation. Coarse calcification s are noted in the left lobe. Thoracic aorta: There is atherosclerotic calcification of the thoracic aorta, which is normal in isidro yamileth and demonstrates standard 3-vessel arch anatomy. No evidence of dissection is seen. The thoracic aorta is not well-opacified. Pulmonary vasculature: The pulmonary trunk is normal in caliber. There are no filling defects identif ied in the main, lobar, or segmental pulmonary arteries to indicate pulmonary embolus. Evaluation of the peripheral branches is degraded by motion artifact. Heart: The heart is enlarged noting a small pericardial effusion. Lungs and pleural spaces: There are small right and moderate left pleural effusions with dependent at electasis. The trachea and central airways are clear. Intralobular septal thickening suggests fluid o verload/congestive change. A 4 mm left lower lobe pulmonary nodule seen on image #97 is unchanged. Mediastinum: There are prominent subcentimeter mediastinal nodes. Nessa: Mildly enlarged hilar nodes measure up to 15 mm in short axis. Axillae: There is no axillary lymphadenopathy. Upper abdomen: Reflux of contrast into the IVC and hepatic veins suggests cardiac dysfunction. Partia lly visualized upper abdominal viscera is otherwise grossly unremarkable. Skeletal structures: The skeletal structures are osteopenic. Degenerative change and mild hyperkyphos is is noted in the thoracic spine. There is a subacute/healing fracture of the manubrium. There is al so a subacute superior end plate compression fracture of T10 with minimal loss of height. No retropul sed fragments are seen. There are subacute/healing right-sided rib fractures. No lytic or blastic bon y lesions are seen. IMPRESSION: 1. There is no evidence of pulmonary embolus in the main, lobar, or segmental pulmonary arteries. 2. There are subacute/healing fractures of the manubrium, T10, and the right-sided ribs. 3. Cardiomegaly with evidence of fluid overload/congestive change. 4. Left larger than right pleural effusions with dependent atelectasis. 5. Mildly enlarged hilar nodes are nonspecific and likely reactive. 6. Additional findings as above. ACT 112: Negative or not required by law. Electronically signed by: Israel Diaz M.D. 10/20/2023 11:06 AM
[2023-10-20] MEDS: FUROSEMIDE 40 MG/4 ML VIAL IV ONE (11:39)
[2023-10-20] MEDS ORDERED: ONDANSETRON INJ 2 MG/ML 2 ML VIAL IV PRN (11:48)
[2023-10-20] MEDS: LIDOCAINE 5% 1 PATCH TD ONE (12:05)
[2023-10-20] MEDS: ONDANSETRON INJ 2 MG/ML 2 ML VIAL ONE (12:05)
[2023-10-20] MEDS: LIDOCAINE 5% 1 PATCH TD STA (12:10)
[2023-10-20] MEDS: ONDANSETRON INJ 2 MG/ML 2 ML VIAL IV STA (12:10)
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
--- OUTSIDE RECORDS SUMMARY | 2023-10-20 13:11 | External Medical Summary ---
Author Name Unknown Address Unknown Organization [id number] [place] [place] [address] Laboratory Report Ordering Provider Test Date Status CONNIE BUTLER 10/14/2023 06:13:59 Final Observation Date Value Abnormality Reference (Units ) Status WBC, Total 10/14/2023 06:13:59 5.95 4.00-10.8 0 (K/uL) Final RBC 10/14/2023 06:13:59 3.85 3.85-5.15 (M/uL) Final Hemoglobin 10/14/2023 06:13:59 11.5 Below low normal 12 .0-15.3 (g/dL) Final HCT 10/14/2023 06:13:59 35.4 Below low normal 36. 0-45.2 (%) Final MCV 10/14/2023 06:13:59 91.9 81.5-97.5 (fL) Final MCH 10/14/2023 06:13:59 29.9 27.0-34.0 (pg) Final MCHC 10/14/2023 06:13:59 32.5 32.0-36.0 (g/dL) Final RDW 10/14/2023 06:13:59 14.4 11.5-15.5 (%) Final Platelets 10/14/2023 06:13:59 264 140-400 (K /uL) Final MPV 10/14/2023 06:13:59 9.4 6.6-11.1 ( fL) Final Performing Location [facility] [place] [address]
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
--- OUTSIDE RECORDS SUMMARY | 2023-10-20 13:11 | External Medical Summary ---
Author Name Unknown Address Unknown Organization [id number] [place] [address] Laboratory Report Ordering Provider Test Date Status CONNIE BUTLER 10/14/2023 06:13:59 Final Observation Date Value Abnormality Reference (Units ) Status BUN 10/14/2023 06:13:59 24 Above high normal 6-20 (mg/dL) Final Creatinine 10/14/2023 06:13:59 1.0 0.5-1.0 (mg/dL) Final Glomerular filtration rate/1.73 sq M.predicted [Volume Rate/Area] in Serum, Plasma or Blood by Creatinine-based formula (CKD-EPI) 10/14/2023 06:13:59 61 >=60 (mL/min) Final eGFR is calculated based on the CKD-EPI 2020 equation Sodium 10/14/2023 06:13:59 136 135-146 (m mol/L) Final Potassium 10/14/2023 06:13:59 4.3 3.5-5.1 (m mol/L) Final Cl 10/14/2023 06:13:59 98 98-107 (mm ol/L) Final CO2 10/14/2023 06:13:59 28 22-32 (mmo l/L) Final Anion gap 10/14/2023 06:13:59 10 7-15 (mmol /L) Final Glucose 10/14/2023 06:13:59 193 Above high normal 70 -120 (mg/dL) Final Calcium 10/14/2023 06:13:59 8.8 8.4-10.2 ( mg/dL) Final Performing Location [facility] [place] [address]
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
--- OUTSIDE RECORDS SUMMARY | 2023-10-20 13:12 | External Medical Summary ---
Author Name Unknown Address Unknown Organization K09[facility] [place] [address] Laboratory Report Ordering Provider Test Date Status CONNIE BUTLER 10/07/2023 05:30:00 Final Observation Date Value Abnormality Reference (Units ) Status BUN 10/07/2023 05:30:00 30 Above high normal 6-20 (mg/dL) Final Creatinine 10/07/2023 05:30:00 1.0 0.5-1.0 (mg/dL) Final Glomerular filtration rate/1.73 sq M.predicted [Volume Rate/Area] in Serum, Plasma or Blood by Creatinine-based formula (CKD-EPI) 10/07/2023 05:30:00 62 >=60 (mL/min) Final eGFR is calculated based on the CKD-EPI 2020 equation Sodium 10/07/2023 05:30:00 136 135-146 (m mol/L) Final Potassium 10/07/2023 05:30:00 4.5 3.5-5.1 (m mol/L) Final Cl 10/07/2023 05:30:00 98 98-107 (mm ol/L) Final CO2 10/07/2023 05:30:00 29 22-32 (mmo l/L) Final Anion gap 10/07/2023 05:30:00 9 7-15 (mmol /L) Final Glucose 10/07/2023 05:30:00 206 Above high normal 70 -120 (mg/dL) Final Calcium 10/07/2023 05:30:00 8.7 8.4-10.2 ( mg/dL) Final Performing Location [facility] [place] [address]
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
--- OUTSIDE RECORDS SUMMARY | 2023-10-20 13:12 | External Medical Summary ---
Author Name Unknown Address Unknown Organization K[facility] [address] [place] [address] Laboratory Report Ordering Provider Test Date Status CONNIE BUTLER 10/07/2023 05:30:00 Final Observation Date Value Abnormality Reference (Units ) Status WBC, Total 10/07/2023 05:30:00 6.84 4.00-10.8 0 (K/uL) Final RBC 10/07/2023 05:30:00 3.79 3.85-5.15 (M/uL) Final Hemoglobin 10/07/2023 05:30:00 11.4 Below low normal 12 .0-15.3 (g/dL) Final HCT 10/07/2023 05:30:00 34.6 Below low normal 36. 0-45.2 (%) Final MCV 10/07/2023 05:30:00 91.3 81.5-97.5 (fL) Final MCH 10/07/2023 05:30:00 30.1 27.0-34.0 (pg) Final MCHC 10/07/2023 05:30:00 32.9 32.0-36.0 (g/dL) Final RDW 10/07/2023 05:30:00 14.1 11.5-15.5 (%) Final Platelets 10/07/2023 05:30:00 246 140-400 (K /uL) Final MPV 10/07/2023 05:30:00 9.4 6.6-11.1 ( fL) Final Performing Location [facility] [address] [place] [address]
--- OUTSIDE RECORDS SUMMARY | 2023-10-20 13:13 | External Medical Summary | Summary of Care ---
Author Name Unknown Organization [facility] Address [address] [place] [address] Phone [phone] Care Team Providers Care Supply Chain Consultant Name Role Phone Teodoro Haile MD Primary Care Provider + Reason for Visit * Reason Onset Date Comments Medication Question 10/01/2023 Encounter Details Date Type Department Care Team (Late st Contact Info) Description 10/01/2023 Telephone Cardiology, [facility] [address] [place] [phone] Robbie Canela MD 132 [facility] [place] [phone] Medication Question Allergies Active Allergy Reactions Criticality Noted Date Comments Adhesive Tape Medium 11/11/2018 Other reaction(s): SKIN IRRITATION Labetalol 07/06/2012 Drug intolerance, bradycardia and hypotension June Rony Wilson Nitrofurantoin Monohydrate Macrocrystals 11/25/2006 hives Nickel Low 11/11/2018 Other reaction(s): "TURNS MY SKIN GREEN" Wheat 04/20/2017 Wheat and all grains documented as of this encounter (statuses as of 10/02/2023) Medications Medication Sig Dispensed Refills Start Date [...] 10 MEQ Oral Tablet Extended Release (Klor-Con M10)Indications:Per manent atrial fibrillation (HCC),HTN, goal below 140/90 Take [...] 0 Active Furosemide 40 MG Oral Tablet (Lasix)Indications: HTN, goal below 140/90,Chronic fatigue Take 1/2 Two [...] 180 MG Oral Capsule Extended Release 24 HourIndications:HTN , goal below 140/90,Permanent atrial fibrillation (HCC),Hyperglycemia TAKE 1 CAPSULE BY MOUTH EVERY DAY (MUST BE 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 Please advise Denise at [phone]. Thanks, Micaela Camejo Prevention Specialist [facility] ([facility]) (formerly Telepharmacy) 10/01/2023,11:07 AM * Telephone Encounter - Whitney Ferrell PHARM Tech - 10/01/2023 10:58 AM EDT Transferred caller to specialty line. Thanks, Whitney Ferrell Sterilization Tech [facility] ([facility]) 10/01/2023,10:58 AM documented in this encounter Plan of Treatment Upcoming Encounters Date Type Department Care Team (Late st Contact Info) Description 10/08/2023 11:20 AM EDT Office Visit General Internal Medicine [address] [place] [address] [place] [address] Teodoro Haile MD [address] [place] [address] 11/06/2023 1:30 PM EDT Office Visit Cardiology, [facility] 132 [facility] [place] [address] Chantel Bond CRNP 400 [facility] [place] [address] 01/11/2024 2:40 PM EDT Office Visit General Internal Medicine [facility] 200 [facility] [place] [address] Teodoro Haile MD 200 [facility] [place] [address] 01/29/2024 1:30 PM EDT Office Visit Ophthalmology, [facility] 132 [facility] [place] [address] Chucho Martinez MD [address] [place] [address] Health Maintenance Due Date Last Done Comments [...] 02/25/2018, 02/05/2016, Additional history exists COVID-19 Vaccine (2022-24 season) 2023 Depression, Most Recent Score >= [...] filedocumented as of this encounter Care Teams Supply Chain Consultant Relationship Specialty Start Date End Date Teodoro Haile MD 200 [facility] [place] [address] PCP - General Internal Medicine 09/03/11 documented as of this encounter
--- OUTSIDE RECORDS SUMMARY | 2023-10-20 13:13 | External Medical Summary | Summary of Care ---
Author Name Unknown Organization [facility] Address [address] [place] [address] Phone [phone] Care Team Providers Care It Risk Advisor Name Role Phone Teodoro Haile MD Primary Care Provider + Reason for Visit * Reason Onset Date Comments Medication Question 10/01/2023 Encounter Details Date Type Department Care Team (Late st Contact Info) Description 10/01/2023 Telephone Cardiology, [facility] [address] [place] [phone] Robbie Canela MD 132 [facility] [place] [phone] Medication Question Allergies Active Allergy Reactions Criticality Noted Date Comments Adhesive Tape Medium 11/11/2018 Other reaction(s): SKIN IRRITATION Labetalol 07/06/2012 Drug intolerance, bradycardia and hypotension June Rony Wilson Nitrofurantoin Monohydrate Macrocrystals 11/25/2006 hives Nickel Low 11/11/2018 Other reaction(s): "TURNS MY SKIN GREEN" Wheat 04/20/2017 Wheat and all grains documented as of this encounter (statuses as of 10/01/2023) Medications Medication Sig Dispensed Refills Start Date [...] CAPSULE BY MOUTH EVERY DAY (MUST BE [facility]: [address]-12) 90 Capsule 3 08/31/2023 Active documented as of this encounter (statuses as of 10/01/2023) Active Problems Problem Noted Date Diagnosed Date [...] as of this encounter (statuses as of 10/01/2023) Resolved Problems Problem Noted Date Diagnosed Date [...] 12/10/2006 08/25/2017 Atrial fibrillation 12/09/2006 10/14/19 19 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 Please advise Denise at [phone]. Thanks, Micaela Camejo Tree Care Foreman [facility] ([facility]) (formerly Telepharmacy) 10/01/2023,11:07 AM * Telephone Encounter - Whitney Ferrell PHARM Tech - 10/01/2023 10:58 AM EDT Transferred caller to specialty line. Thanks, Whitney Ferrell Measurer Machine [facility] ([facility]) 10/01/2023,10:58 AM documented in this encounter Plan of Treatment Upcoming Encounters Date Type Department Care Team (Late st Contact Info) Description 10/08/2023 11:20 AM EDT Office Visit General Internal Medicine [facility] [address] [place], [place] [address] Teodoro Haile MD [address] [place] [address] 11/06/2023 1:30 PM EDT Office Visit Cardiology, [facility] 132 [facility] [place] [address] Chantel Bond CRNP [address] [place], [place] [address], [place] [address] 01/11/2024 2:40 PM EDT Office Visit General Internal Medicine [facility] 200 [facility] [place] [address] Teodoro Haile MD 200 [facility] [place] [address] 01/29/2024 1:30 PM EDT Office Visit Ophthalmology, [facility] [address] [place] [address] Chucho Martinez MD [address] [place] [address] Health Maintenance Due Date Last Done Comments [...] 05/03/20202 019, 02/25/2018, 02/05/2016, Additional history exists COVID-19 [...] filedocumented as of this encounter Care Teams It Risk Advisor Relationship Specialty Start Date End Date Teodoro Haile MD [address] [place] [address] PCP - General Internal Medicine 09/03/11 documented as of this encounter
--- OUTSIDE RECORDS SUMMARY | 2023-10-20 13:13 | External Medical Summary | Summary of Care ---
Author Name Unknown Organization [facility] Address [address] [place] [address] Phone [phone] Care Team Providers Care Physician Office Rep Name Role Phone Teodoro Haile MD Primary Care Provider + Reason for Visit * Reason Onset Date Comments Medication Question 10/01/2023 Encounter Details Date Type Department Care Team (Late st Contact Info) Description 10/01/2023 Telephone Cardiology, [facility] [address] [place] [phone] Robbie Canela MD 132 [facility] [place] [phone] Medication Question Allergies Active Allergy Reactions Criticality [...] CAPSULE BY MOUTH EVERY DAY (MUST BE [facility]: [address]-36) 90 Capsule 3 08/31/2023 Active documented as [...] 12/10/2006 08/25/2017 Atrial fibrillation 12/09/2006 10/14/19 19 ad terminal makeup operator current use of ant icoagulant therapy [...] encounter Miscellaneous Notes * Telephone Encounter - Mario Ravi RN [...] - 10/01/2023 11:00 AM EDT Denise from [facility] calling to advise when pt was in [...] heart to pound. Please advise Denise at [phone]. Thanks, Micaela Camejo Robotics Technician [facility] ([facility]) (formerly Telepharmacy) 10/01/2023,11:07 AM * Telephone Encounter - Whitney Ferrell PHARM Tech - 10/01/2023 10:58 AM EDT Transferred caller to specialty line. Thanks, Whitney Ferrell Logging Truck Driver [facility] ([facility]) 10/01/2023,10:58 AM documented in this encounter Plan of Treatment Upcoming Encounters Date Type Department Care Team (Late st Contact Info) Description 10/08/2023 11:20 AM EDT Office Visit General Internal Medicine [facility] 200 [facility] [place] [address] Teodoro Haile MD 200 [facility] [place] [address] 11/06/2023 1:30 PM EDT Office Visit Cardiology, [facility] [address] [place] [address] Chantel Bond CRNP [address] [place] [address] [place] [address] 01/11/2024 2:40 PM EDT Office Visit General Internal Medicine [facility] 200 [facility] [place] [address] Teodoro Haile MD 200 [facility] [place] [address] 01/29/2024 1:30 PM EDT Office Visit Ophthalmology, [facility] [address] [place] [address] Chucho Martinez MD [address] [place] [address] Health Maintenance Due Date Last Done Comments [...] filedocumented as of this encounter Care Teams Physician Office Rep Relationship Specialty Start Date End Date Teodoro Haile MD [address] [place] [address] PCP - General Internal Medicine 09/03/11 documented as of this encounter
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
--- OUTSIDE RECORDS SUMMARY | 2023-10-20 13:14 | External Medical Summary | Summary of Care ---
Author Name Unknown Organization [facility] Address [address] [place] [address] Phone [phone] Care Team Providers Care Temporary Office Assistant Name Role Phone Teodoro Haile MD Primary Care Provider + Reason for Visit * Reason Onset Date Comments Medication Question 10/01/2023 Encounter Details Date Type Department Care Team (Late st Contact Info) Description 10/01/2023 Telephone Cardiology, [facility] [address] [place] [id number] Robbie Canela MD [address] [facility] [place] [id number] Medication Question Allergies Active Allergy Reactions Criticality [...] CAPSULE BY MOUTH EVERY DAY (MUST BE [facility]: [id number]) 90 Capsule 3 08/31/2023 Active documented as [...] 12/10/2006 08/25/2017 Atrial fibrillation 12/09/2006 10/14/19 19 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 Please advise Denise at [phone]. Thanks, Micaela Camejo Securities Vault Supervisor [facility] ([facility] (formerly Telepharmacy) 10/01/2023,11:07 AM * Telephone Encounter - Whitney Ferrell PHARM Tech - 10/01/2023 10:58 AM EDT Transferred caller to specialty line. Thanks, Whitney Ferrell [employer] Foreign Language Tutor [facility] ([facility]) 10/01/2023,10:58 AM documented in this encounter Plan of Treatment Upcoming Encounters Date Type Department Care Team (Late st Contact Info) Description 10/08/2023 11:20 AM EDT Office Visit General Internal Medicine [facility] [address] [place], [place] [address] Teodoro Haile MD [address] [place] [address] 11/06/2023 1:30 PM EDT Office Visit Cardiology, [facility] 132 [facility] [place] [address] Chantel Bond CRNP [address] [place], [place] [address], [place] [address] 01/11/2024 2:40 PM EDT Office Visit General Internal Medicine [facility] 200 [facility] [place] [address] Teodoro Haile MD 200 [facility] [place] [address] 01/29/2024 1:30 PM EDT Office Visit Ophthalmology, [facility] [address] [place] [address] Chucho Martinez MD [address] [place] [address] Health Maintenance Due Date Last Done Comments [...] filedocumented as of this encounter Care Teams Temporary Office Assistant Relationship Specialty Start Date End Date Teodoro Haile MD [address] [place] [address] PCP - General Internal Medicine 09/03/11 documented as of this encounter
--- OUTSIDE RECORDS SUMMARY | 2023-10-20 13:14 | External Medical Summary | Summary of Care ---
Author Name Unknown Organization [facility] Address [address] [place] [address] Phone [phone] Care Team Providers Care District Adviser Name Role Phone Teodoro Haile MD Primary Care Provider + Reason for Visit * Reason Onset Date Comments Medication Question 10/01/2023 Encounter Details Date Type Department Care Team (Late st Contact Info) Description 10/01/2023 Telephone Cardiology, [facility] [address] [place] [id number] Robbie Canela MD 132 [facility] [place] [phone] Medication Question Allergies Active Allergy Reactions Criticality [...] CAPSULE BY MOUTH EVERY DAY (MUST BE [facility][NOTE 3]: [id number]) 90 Capsule 3 08/31/2023 Active documented as [...] 12/10/2006 08/25/2017 Atrial fibrillation 12/09/2006 10/14/19 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 Please advise Denise at [phone]. Thanks, Micaela Camejo Planning Consultant [facility] ([facility] (formerly Telepharmacy) 10/01/2023,11:07 AM * Telephone Encounter - Whitney Ferrell PHARM Tech - 10/01/2023 10:58 AM EDT Transferred caller to specialty line. Thanks, Whitney Ferrell Device Sales Consultant [facility] ([facility]) 10/01/2023,10:58 AM documented in this encounter Plan of Treatment Upcoming Encounters Date Type Department Care Team (Late st Contact Info) Description 10/08/2023 11:20 AM EDT Office Visit General Internal Medicine [facility] [address] [place], [place] [address] Teodoro Haile MD [address] [place] [address] 11/06/2023 1:30 PM EDT Office Visit Cardiology, [facility] 132 [facility] [place] [address] Chantel Bond CRNP [address] [place], [place] [address] [place] [address] 01/11/2024 2:40 PM EDT Office Visit General Internal Medicine [facility] 200 [facility] [place] [address] Teodoro Haile MD [address] [facility] [place] [address] 01/29/2024 1:30 PM EDT Office Visit Ophthalmology, [facility] [address] [place] [address] Chucho Martinez MD [address] [place] [address] Health Maintenance Due Date Last Done Comments [...] filedocumented as of this encounter Care Teams District Adviser Relationship Specialty Start Date End Date Teodoro Haile MD [address] [place] [address] PCP - General Internal Medicine 09/03/11 documented as of this encounter
[2023-10-20] MEDS: POTASSIUM CHLORIDE CRTAB 20 MEQ TABCR PO STA (14:00)
[2023-10-20] MEDS: ACETAMINOPHEN 500 MG TAB PO SCH (14:00)
[2023-10-20] MEDS: SCOPOLAMINE 1 MG/72 HR TDSY PATCH TD ONE (14:01)
[2023-10-20] MEDS: DICLOFENAC SOD 1% GEL 100 GM TUBE EXT SCH (14:01)
[2023-10-20] MEDS ORDERED: oxyCODONE HCL IR 5 MG TAB (IMMEDIATE RELEASE) PO PRN (14:54)
[2023-10-20] MEDS ORDERED: DEXTROSE 50% 50 ML SYRINGE IV PRN (14:54)
[2023-10-20] MEDS ORDERED: GLUCAGON FOR INJ 1 MG VIAL SQ PRN (14:54)
[2023-10-20] MEDS ORDERED: CARBOHYDRATES FOR HYPOGLYCEMIA PO PRN (14:54)
[2023-10-20] MEDS ORDERED: GLUCOSE 40% GEL 15 GM TUBE PO PRN (14:54)
[2023-10-20] MEDS ORDERED: MAGNESIUM MALATE PO SCH (14:54)
[2023-10-20] MEDS ORDERED: POLYETHYLENE (MIRALAX) 17 GM PACK PO PRN (14:54)
[2023-10-20] MEDS ORDERED: GLUCOSE 10 TAB/TUBE PO PRN (14:54)
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
--- NOTE | 2023-10-20 16:01 | Electrocardiogram Report ---
Test Reason : Blood Pressure : / mmHG Vent. Rate : 100 BPM Atrial Rate : 000 BPM P-R Int : 000 ms QRS Dur : 062 ms QT Int : 288 ms P-R-T Axes : 000 089 -69 degrees QTc Int : 371 ms Atrial fibrillation Low voltage QRS Anterolateral infarct , age undetermined Abnormal ECG When compared with ECG of 26-SEP-2023 22:14, Anterolateral infarct is now Present Nonspecific T wave abnormality no longer evident in Lateral leads Confirmed by Manny Gamez ([id number]) on 10/20/2023 4:01:25 PM Referred By: REFERRED SELF Confirmed By:Manny Gamez
[2023-10-20] MEDS: METOPROLOL SUCC 50MG EXT REL TAB PO STA (16:15)
[2023-10-20] MEDS: LOSARTAN POTASSIUM 25 MG TAB PO STA (16:15)
[2023-10-20] MEDS: ENOXAPARIN INJ 40 MG/0.4 ML SYR SQ SCH (16:19)
[2023-10-20] MEDS: CHECK SCOPOLAMINE PATCH PLACEMENT SCH (16:20)
[2023-10-20 16:53] LABS: BUN Creatinine Ratio 31.6 (10-20); Creatinine Clr Calc Pharmacy 80.3 ml/min; Est GFR (African American) 69.2 ml/min; Est GFR (Non-African American) 59.7 ml/min; Potassium 4.4 mmol/L (3.5-5.1)
[2023-10-20] MEDS: INSULIN ASPART PER UNIT CHARGE SC SCH (17:23)
[2023-10-20] MEDS: NITROGLYCERIN 2% OINTMENT 30GM TUBE EXT SCH (18:18)
[2023-10-20] MEDS: LANTUS PER UNIT CHARGE SQ SCH (20:51)
[2023-10-20] MEDS: LORazepam 0.5 MG TAB PO PRN (20:54)
[2023-10-20] MEDS: dilTIAZem HCL 240 MG CAPCR PO SCH (20:55)
[2023-10-20] MEDS: METOPROLOL SUCC 50MG EXT REL TAB PO SCH (20:55)
[2023-10-20] MEDS: ASCORBIC ACID 500 MG TAB PO SCH (20:56)
[2023-10-20] MEDS ORDERED: LOSARTAN POTASSIUM 50 MG TAB PO SCH (21:00)
[2023-10-20] MEDS ORDERED: METOPROLOL SUCC 50MG EXT REL TAB PO SCH (21:00)
[2023-10-20] MEDS: LOSARTAN POTASSIUM 25 MG TAB PO SCH (21:00)
[2023-10-20] MEDS ORDERED: dilTIAZem HCL 300 MG CAPCR PO SCH (21:00)
[2023-10-21 04:33] LABS: Hematocrit (blood only) 33.5 % (37.0-47.0); Hemoglobin 11.4 g/dl (12.0-16.0); Mean Corpuscular Hemoglobin 30.1 pg (25.0-34.0); Mean Corpuscular Volume 88.4 fL (80.0-100.0); Platelet Count 183 K/uL (130-400); RDW Standard Deviation 45.3 fL (36.4-46.3); Red Blood Count 3.79 M/uL (4.20-5.40); White Blood Count 6.07 K/ul (4.8-10.8)
[2023-10-21 04:47] LABS: Calcium 8.5 mg/dl (8.6-10.3); Creatinine Clr Calc Pharmacy 81.1 ml/min; Est GFR (Non-African American) 60.4 ml/min; Magnesium 1.7 mg/dl (1.7-2.4); Potassium 3.7 mmol/L (3.5-5.1)
[2023-10-21] MEDS: FUROSEMIDE 40 MG/4 ML VIAL IV SCH (09:43)
[2023-10-21] MEDS: POTASSIUM CHLORIDE CRTAB 20 MEQ TABCR PO SCH (09:43)
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
[2023-10-21] MEDS: LOSARTAN POTASSIUM 50 MG TAB PO SCH (17:01)
[2023-10-21] MEDS: ACETAMINOPHEN 1,000 MG/100 ML VIAL IV PRN (21:02)
[2023-10-21] MEDS: LORazepam 0.5 MG TAB PO PRN (21:06)
[2023-10-21] MEDS: hydrALAZINE HCL 20 MG/ML VIAL IV PRN (23:25)
[2023-10-21] MEDS: METOPROLOL TARTRATE 1 MG/ML VIAL IV STA (23:45)
[2023-10-22] MEDS: ACETAMINOPHEN 325 MG TAB PO STA (00:02)
[2023-10-22] MEDS: METOPROLOL SUCC 50MG EXT REL TAB PO STA (06:27)
[2023-10-22 06:29] LABS: Appearance Urine Clear (Clear); Bacteria Urine Automated None Seen (None Seen); Bilirubin Urine Negative (Negative); Blood Urine Negative (Negative); Cast Urine Automated 0-2 /lpf (0-2); Color Urine Yellow; Epithelial Cell Urine Auto 0-2 /hpf (0-2); Glucose Urine UA Negative (Negative); Ketones Urine Negative (Negative); Leukocyte Esterase Urine Negative (Negative); Nitrite Urine Negative (Negative); Protein Urine 3+ (Negative); RBC Urine Automated 0-2 /hpf (0-2); Specific Gravity Urine 1.031 (1.000-1.030); Urobilinogen Urine Negative (Negative); WBC Urine Automated 0-5 /hpf (0-5)
[2023-10-22 08:24] LABS: Albumin Globulin Ratio 1.4 (0.9-2); Albumin Level 3.6 gm/dl (3.4-5.0); Bilirubin,Total 0.9 mg/dl (0.2-1.0); Calcium 8.9 mg/dl (8.6-10.3); Creatinine Clr Calc Pharmacy 75.9 ml/min; Est GFR (African American) 67.5 ml/min; Est GFR (Non-African American) 58.3 ml/min; Globulin 2.6 gm/dl (2.5-4.0); Magnesium 1.7 mg/dl (1.7-2.4); Phosphorus 4.2 mg/dl (2.5-4.9); Potassium 3.9 mmol/L (3.5-5.1); Total Protein 6.2 gm/dl (6.0-8.3)
[2023-10-22 08:56] LABS: Hemoglobin 12.7 g/dl (12.0-16.0); Mean Corpuscular Hemoglobin 30.2 pg (25.0-34.0); Mean Corpuscular Hgb Conc 33.4 g/dL (32.0-36.0); Mean Corpuscular Volume 90.3 fL (80.0-100.0); Mean Platelet Volume 9.5 fL (9.4-12.4); Platelet Count 215 K/uL (130-400); RDW Coefficient of Variation 14.3 % (11.5-14.5); RDW Standard Deviation 47.1 fL (36.4-46.3); Red Blood Count 4.21 M/uL (4.20-5.40)
[2023-10-22] MEDS: ACETAMINOPHEN 325 MG TAB PO PRN (10:14)
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
[2023-10-22] MEDS: FUROSEMIDE 40 MG/4 ML VIAL IV ONE (14:17)
[2023-10-22] MEDS: METOPROLOL SUCC 50MG EXT REL TAB PO SCH (20:36)
[2023-10-22] MEDS: FUROSEMIDE 40 MG/4 ML VIAL IV SCH (20:37)
[2023-10-23 07:36] LABS: Hematocrit (blood only) 33.5 % (37.0-47.0); Hemoglobin 11.2 g/dl (12.0-16.0); Mean Corpuscular Hemoglobin 29.7 pg (25.0-34.0); Mean Corpuscular Hgb Conc 33.4 g/dL (32.0-36.0); Mean Corpuscular Volume 88.9 fL (80.0-100.0); Platelet Count 167 K/uL (130-400); RDW Standard Deviation 45.5 fL (36.4-46.3); Red Blood Count 3.77 M/uL (4.20-5.40); White Blood Count 5.46 K/ul (4.8-10.8)
[2023-10-23 08:11] LABS: Albumin Globulin Ratio 1.5 (0.9-2); Albumin Level 3.2 gm/dl (3.4-5.0); BUN Creatinine Ratio 35.4 (10-20); Bilirubin,Total 0.7 mg/dl (0.2-1.0); Calcium 8.5 mg/dl (8.6-10.3); Creatinine Clr Calc Pharmacy 92.3 ml/min; Est GFR (African American) 85.8 ml/min; Globulin 2.2 gm/dl (2.5-4.0); Magnesium 1.6 mg/dl (1.7-2.4); Phosphorus 4.2 mg/dl (2.5-4.9); Potassium 3.7 mmol/L (3.5-5.1); Total Protein 5.4 gm/dl (6.0-8.3)
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
[2023-10-23] MEDS: MAGNESIUM SULFATE / D5W 1 GM/100 ML BAG IV SCH (11:46)
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
[2023-10-23] MEDS ORDERED: Nursing to Pharmacy Communication SCH (16:00)
[2023-10-23] MEDS: FUROSEMIDE 40 MG/4 ML VIAL IV SCH (16:46)
[2023-10-23] MEDS: hydrALAZINE HCL 25 MG TAB PO SCH (20:08)
[2023-10-24 07:28] LABS: Hematocrit (blood only) 35.1 % (37.0-47.0); Hemoglobin 11.3 g/dl (12.0-16.0); Mean Corpuscular Hgb Conc 32.2 g/dL (32.0-36.0); Mean Platelet Volume 9.3 fL (9.4-12.4); Platelet Count 164 K/uL (130-400); RDW Standard Deviation 45.7 fL (36.4-46.3)
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
[2023-10-24 07:51] LABS: Albumin Globulin Ratio 1.4 (0.9-2); Albumin Level 3.1 gm/dl (3.4-5.0); BUN Creatinine Ratio 28.1 (10-20); Bilirubin,Total 0.8 mg/dl (0.2-1.0); Calcium 8.3 mg/dl (8.6-10.3); Creatinine Clr Calc Pharmacy 84.8 ml/min; Est GFR (African American) 77.7 ml/min; Est GFR (Non-African American) 67.1 ml/min; Globulin 2.2 gm/dl (2.5-4.0); Magnesium 1.7 mg/dl (1.7-2.4); Phosphorus 4.2 mg/dl (2.5-4.9); Potassium 3.5 mmol/L (3.5-5.1); Total Protein 5.3 gm/dl (6.0-8.3)
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
[2023-10-25 04:00] LABS: Hematocrit (blood only) 34.8 % (37.0-47.0); Hemoglobin 11.8 g/dl (12.0-16.0); Mean Corpuscular Hemoglobin 29.9 pg (25.0-34.0); Mean Corpuscular Hgb Conc 33.9 g/dL (32.0-36.0); Mean Corpuscular Volume 88.1 fL (80.0-100.0); Platelet Count 178 K/uL (130-400); RDW Coefficient of Variation 13.9 % (11.5-14.5); Red Blood Count 3.95 M/uL (4.20-5.40); White Blood Count 5.64 K/ul (4.8-10.8)
[2023-10-25 04:24] LABS: Albumin Globulin Ratio 1.2 (0.9-2); Albumin Level 3.2 gm/dl (3.4-5.0); BUN Creatinine Ratio 32.6 (10-20); Bilirubin,Total 0.7 mg/dl (0.2-1.0); Calcium 8.4 mg/dl (8.6-10.3); Est GFR (African American) 77.7 ml/min; Est GFR (Non-African American) 67.1 ml/min; Globulin 2.6 gm/dl (2.5-4.0); Magnesium 1.6 mg/dl (1.7-2.4); Potassium 3.3 mmol/L (3.5-5.1); Total Protein 5.8 gm/dl (6.0-8.3)
[2023-10-25] MEDS: hydrALAZINE HCL 25 MG TAB PO SCH (06:11)
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
[2023-10-25] MEDS: POTASSIUM CHLORIDE CRTAB 20 MEQ TABCR PO STA (12:09)
[2023-10-25] MEDS: MAGNESIUM SULFATE / D5W 1 GM/100 ML BAG IV SCH (12:10)
[2023-10-25] MEDS: MAGNESIUM OXIDE 400 MG TAB PO SCH (12:10)
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
[2023-10-25] MEDS: SPIRONOLACTONE 25 MG TAB PO SCH (15:40)
[2023-10-26 06:44] LABS: Hematocrit (blood only) 37.5 % (37.0-47.0); Hemoglobin 12.4 g/dl (12.0-16.0); Mean Corpuscular Hemoglobin 29.5 pg (25.0-34.0); Mean Corpuscular Hgb Conc 33.1 g/dL (32.0-36.0); Mean Corpuscular Volume 89.3 fL (80.0-100.0); Platelet Count 187 K/uL (130-400); RDW Coefficient of Variation 13.9 % (11.5-14.5); RDW Standard Deviation 45.7 fL (36.4-46.3); White Blood Count 5.83 K/ul (4.8-10.8)
[2023-10-26 07:11] LABS: Albumin Globulin Ratio 1.4 (0.9-2); Albumin Level 3.6 gm/dl (3.4-5.0); BUN Creatinine Ratio 27.1 (10-20); Bilirubin,Total 1.1 mg/dl (0.2-1.0); Calcium 8.8 mg/dl (8.6-10.3); Creatinine Clr Calc Pharmacy 68.4 ml/min; Est GFR (African American) 62.2 ml/min; Est GFR (Non-African American) 53.7 ml/min; Globulin 2.6 gm/dl (2.5-4.0); Magnesium 1.8 mg/dl (1.7-2.4); Phosphorus 3.9 mg/dl (2.5-4.9); Potassium 4.2 mmol/L (3.5-5.1); Total Protein 6.2 gm/dl (6.0-8.3)
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
[2023-10-26] MEDS: hydrALAZINE TAB 50 MG TAB PO SCH (14:29)
[2023-10-26] MEDS: METOPROLOL SUCC 50MG EXT REL TAB PO SCH (20:03)
[2023-10-27 06:32] LABS: Hematocrit (blood only) 36.3 % (37.0-47.0); Hemoglobin 12.3 g/dl (12.0-16.0); Mean Corpuscular Hemoglobin 29.9 pg (25.0-34.0); Mean Corpuscular Hgb Conc 33.9 g/dL (32.0-36.0); Mean Corpuscular Volume 88.3 fL (80.0-100.0); Mean Platelet Volume 9.3 fL (9.4-12.4); Platelet Count 172 K/uL (130-400); RDW Coefficient of Variation 13.9 % (11.5-14.5); RDW Standard Deviation 44.4 fL (36.4-46.3); Red Blood Count 4.11 M/uL (4.20-5.40); White Blood Count 5.71 K/ul (4.8-10.8)
[2023-10-27 06:51] LABS: Albumin Globulin Ratio 1.3 (0.9-2); Albumin Level 3.3 gm/dl (3.4-5.0); Bilirubin,Total 0.6 mg/dl (0.2-1.0); Calcium 8.3 mg/dl (8.6-10.3); Creatinine Clr Calc Pharmacy 71.1 ml/min; Est GFR (African American) 65.1 ml/min; Est GFR (Non-African American) 56.2 ml/min; Globulin 2.5 gm/dl (2.5-4.0); Magnesium 1.9 mg/dl (1.7-2.4); Phosphorus 3.8 mg/dl (2.5-4.9); Potassium 3.5 mmol/L (3.5-5.1); Total Protein 5.8 gm/dl (6.0-8.3)
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
[2023-10-27] MEDS: POTASSIUM CHLORIDE 10 MEQ TABCR PO ONE (13:27)
[2023-10-28 08:38] LABS: Hematocrit (blood only) 35.7 % (37.0-47.0); Hemoglobin 11.7 g/dl (12.0-16.0); Mean Corpuscular Hemoglobin 29.4 pg (25.0-34.0); Mean Corpuscular Hgb Conc 32.8 g/dL (32.0-36.0); Mean Corpuscular Volume 89.7 fL (80.0-100.0); Mean Platelet Volume 9.4 fL (9.4-12.4); Platelet Count 173 K/uL (130-400); RDW Standard Deviation 46.4 fL (36.4-46.3); Red Blood Count 3.98 M/uL (4.20-5.40); White Blood Count 4.92 K/ul (4.8-10.8)
[2023-10-28 09:12] LABS: Albumin Globulin Ratio 1.4 (0.9-2); Albumin Level 3.2 gm/dl (3.4-5.0); BUN Creatinine Ratio 33.3 (10-20); Bilirubin,Total 0.8 mg/dl (0.2-1.0); Calcium 8.2 mg/dl (8.6-10.3); Creatinine Clr Calc Pharmacy 65.9 ml/min; Est GFR (African American) 59.5 ml/min; Est GFR (Non-African American) 51.3 ml/min; Globulin 2.3 gm/dl (2.5-4.0); Magnesium 1.8 mg/dl (1.7-2.4); Phosphorus 4.4 mg/dl (2.5-4.9); Potassium 3.8 mmol/L (3.5-5.1); Total Protein 5.5 gm/dl (6.0-8.3)
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
[2023-10-28] MEDS: TORSEMIDE 20 MG TAB PO SCH (12:39)
[2023-10-28] MEDS: POTASSIUM CHLORIDE CRTAB 20 MEQ TABCR PO ONE (12:39)
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
== END 2023-10-28 16:36 | disposition home health service (06) | DRG 291 ==
LOC: ED 08:29 → 2N 12:35 → SUATTDRO 12:35 → 2N 14:17 → 2W 16:46